=== PATIENT | male | born 1945 | race Caucasian/White ===

== ENCOUNTER 2018-01-12 15:52 | Emergency (ER) | payer MEDICARE, SELFPAY ==
[2018-01-12 15:55] VITALS: BP 127/80; PULSE 104; RESP 17; TEMP 36.6; O2SAT 97; BMI 26.6
[2018-01-12 16:04] VITALS: BP 106/67; BP 121/79; BP 124/77; PULSE 112; PULSE 92; PULSE 93
--- NOTE | 2018-01-12 16:21 | CT_ITS ---
STUDY: CT BRAIN WITHOUT CONTRAST REASON FOR EXAM: Male, 72 years old. Dizziness RADIATION DOSAGE (If Supplied By Facility): CTDIvol = ( 44.99 ) mGy, DLP = ( 762.36 ) mGycm TECHNIQUE: Transaxial CT imaging of the brain was performed without administration of intravenous contrast material. Individualized dose optimization techniques were used for this CT. COMPARISON: None. FINDINGS: The soft tissues are unremarkable. The osseous structures are unremarkable. Normal size ventricles and extra-axial spaces for the patient's age. The white matter tracts are unremarkable. The basal ganglia and thalami are unremarkable. No abnormalities are seen in the brainstem. The cerebellum is unremarkable. There is no intracranial hemorrhage. There are no findings of acute ischemia. There are small retention cysts in the lower right maxillary sinus. CT/Brain/Head without Contrast IMPRESSION: No acute intracranial abnormalities. Electronically Signed: Tamy Jiménez MD at 17:13 EDT Tel Direct: [phone], Service support ,
--- NOTE | 2018-01-12 16:22 | EKG12_ITS ---
Test Reason : Blood Pressure : / mmHG Vent. Rate : 084 BPM Atrial Rate : 084 BPM P-R Int : 224 ms QRS Dur : 088 ms QT Int : 348 ms P-R-T Axes : 028 029 018 degrees QTc Int : 411 ms Sinus rhythm with 1st degree A-V block Otherwise normal ECG Confirmed by YASSINE HANSEN, MICKEY ([id number]), assignment editor KELLY GILLESPIE ([id number]) on 01/14/2018 10:55:08 AM Referred By: SHANTELL Confirmed By:MICKEY METZGER MD
--- NOTE | 2018-01-12 16:34 | ED.DCSUM_ITS ---
- ER Visit Summary Date of Service: 01/12/18 Chief Complaint: Dizziness History of Present Illness: The patient is a 72 M who presents with dizziness that has been waxing and waning today. Patient states his dizziness feels like a spinning sensation. Patient states this is worse with ambulation and improved with rest. Patient denies any headaches. Patient denies any paresthesias. Patient admits to some slight nausea but denies any vomiting. Patient states his ears feel plugged. Patient states she had a fever a couple weeks ago where his temperature is up to 100.6. Patient states he was recently treated for pneumonia and bronchitis with 3 different antibiotics. Patient denies any chest pain or shortness of breath. Physical Examination: Vital signs are stable. Patient is afebrile. Patient is in no acute distress. Oral mucosa is pink and moist. Pupils are equal, round, reactive to light bilaterally. Extraocular muscles are intact. Conjunctiva is clear. There is no nystagmus noted. Tympanic membranes are clear bilaterally. Neck is supple. Trachea is midline. There is no JVD or lymphadenopathy. Heart was regular rate and rhythm. Lungs are clear and equal bilaterally. There is good respiratory effort noted. Abdomen is soft nontender. Cranial nerves II through XII are intact. There are no focal motor or sensory deficits noted. Test Results: EKG showed a normal sinus rhythm with a rate of 84. There are no acute ST or T-wave changes noted. CT scan of the brain was obtained was within normal limits. PA and lateral chest x-ray does not show any acute cardiopulmonary process. CBC showed a mild anemia with a hemoglobin of 12.7 and hematocrit 37.6. Troponin was normal. Basic metabolic profile was essentially within normal limits. Emergency Department Course and Treatment: Orthostatic vital signs were obtained and were within normal limits. Patient was given a dose of meclizine here. Patient felt better on reevaluation. Patient was given a prescription for meclizine. Patient was instructed to follow-up with his primary care physician in 7-10 days. Patient understood and was agreeable with the plan. All questions were answered. Disposition: Discharged home Impression: Vertigo This note was generated with [employer] software. It may contain incorrect words, spelling, and punctuation that were not noted in review of the chart prior to signing ED Disposition - Plan for ED Patient: Disposition: Home or Assisted Living Chief Complaint: Dizziness Diagnosis: Vertigo Instructions: ED Vertigo Unspecified Prescriptions: Meclizine HCl 25 mg PO Q8H PRN PRN #20 tab PRN Reason: Dizziness Referrals: Wil Yan MD [Primary Care Provider] -
--- NOTE | 2018-01-12 16:50 | RAD_ITS ---
STUDY: X-RAY CHEST REASON FOR EXAM: Male, 72 years old. Cough. TECHNIQUE: Frontal and lateral views of the chest. COMPARISON: None. FINDINGS: The lungs are mildly hyperexpanded and there is a diffuse interstitial pattern. There is no demonstrated pleural abnormality. There is borderline cardiac enlargement. Normal mediastinum and mattie. Normal visualized pulmonary arteries. There is atherosclerotic calcification of the aortic arch with tortuosity. There are diffuse degenerative changes of the visualized thoracic spine. Normal visualized ribs, clavicles, and shoulders. There is no demonstrated abnormality of the visualized soft tissue structures of the upper abdomen. RAD/Chest PA and Lateral IMPRESSION: Borderline cardiac enlargement with mild hyperexpansion and diffuse interstitial pattern. No acute pathology. Electronically Signed: Chiki Peña MD at 17:05 EDT , Service support ,
[2018-01-12 16:55] LABS: Absolute Lymphocyte Count 1.26 X10^3/ul (0.83-4.51); Absolute Neutrophil Count 3.1 X10^3/uL (2.0-7.7); Basophil# 0.03 X10^3/uL; Basophil% 0.6 % (0-1); Eosinophil# 0.31 X10^3/uL; Eosinophils% 5.8 % (0-5); Hematocrit 37.6 % (40-54); Hemoglobin 12.7 g/dl (13.0-16.5); Lymphocyte # 1.26 X10^3/ul (4.0); Lymphocyte % 23.7 % (19-41); Mean Corp Hgb Conc 33.8 g/gl (32-36); Mean Corpuscular Hgb 30.8 pg (27.0-32.0); Mean Corpuscular Volume 91.3 fL (80-94); Mean Platelet Vol. 10.2 fl (6.2-12.0); Monocyte# 0.56 X10^3/uL; Monocyte% 10.5 % (0-10); Neutrophil # 3.13 X10^3/uL (2.7-7.7); Platelet Count 216 K/mm3 (150-450); RBC Distribution Width CV 14.5 % (11.6-14.6); RBC Distribution Width SD 47.3 fl (35.1-43.9); Red Blood Count 4.12 M/mm3 (4.6-6.2); White Blood Count 5.3 K/mm3 (4.4-11.0)
[2018-01-12 16:56] LABS: POSITIVE COUNT NO; POSITIVE DIFFERENTIAL NO; POSITIVE MORPHOLOGY NO
[2018-01-12 17:08] LABS: Anion Gap 5 (5-15); BUN 9 mg/dL (7-18); BUN/Creat Ratio 8.4 RATIO (10-20); Calcium,Total 8.8 mg/dL (8.5-10.1); Chloride 107 mmol/L (98-107); Creatinine, Serum 1.07 mg/dL (0.70-1.30); EST Glomerular Filtration Rate 72 mL/min (>60); Est Glom Filt Rate - Afr Amer 87 mL/min (>60); Estimated Creatinine Clearance 54.66 ml/min; Glucose 136 mg/dL (74-106); Potassium 4.3 mmol/L (3.5-5.1); Sodium Level 139 mmol/L (136-145)
[2018-01-12 18:12] VITALS: BP 115/79; PULSE 76; RESP 16; O2SAT 95
[2018-01-12 19:02] VITALS: BP 118/73; PULSE 73; RESP 20; O2SAT 97
--- NOTE | 2018-01-12 19:02 | ED.RN ---
REVIEWED D/C INSTRUCTIONS, FOLLOW UP CARE, PRESCRIPTION, AND S/S THAT WOULD WARRANT A RETURN TO THE ED WITH PT. PT VERBALIZED AN UNDERSTANDING AND DENIES FURTHER QUESTIONS FOR THIS RN. PT SKIN WARM AND DRY, RESP EVEN AND UNLABORED, PT A&O X 3, NO DISTRESS NOTED. PT AMBULATED OUT OF ED, GAIT STEADY.
== END 2018-01-12 19:04 | disposition home or self-care (01) ==
PROVIDERS: Emergency Provider Emergency Medicine; Family Provider Family Medicine; PCP Family Medicine
DX: R42 Dizziness and giddiness (principal); J40 Bronchitis, not specified as acute or chronic; Z79.51 Long term (current) use of inhaled steroids; Z79.82 Long term (current) use of aspirin; Z79.84 Long term (current) use of oral hypoglycemic drugs; Z79.899 Other long term (current) drug therapy
CPT/HCPCS: 70450; 71046; 80048; 84484; 85025; 93005; 99285; A4216

== ENCOUNTER 2019-06-23 21:41 | Emergency (ER) | payer MEDICARE, SELFPAY ==
[2019-06-23 21:41] VITALS: BP 147/86; PULSE 70; RESP 16; TEMP 37.3; O2SAT 96; BMI 26.6
--- NOTE | 2019-06-23 21:52 | US_ITS ---
HISTORY: Epigastric pain. Concern for acute cholecystitis. TECHNIQUE: Miller scale and color doppler imaging was performed of the pancreas, liver, and gallbladder. COMPARISON: None FINDINGS: # of images incl. paperwork: 137 Liver is normal in size and appearance. Gallbladder wall thickening. Biliary ductal dilatation. Gallstone within the neck of the gallbladder with biliary sludge. The gallbladder is distended. There is some linear reverberation artifact extending inferiorly from the anterior wall of the gallbladder on several images. Gallbladder wall measures 4 mm. Common bile duct measures 10 mm. No tenderness upon insonation the gallbladder. Visualized pancreas is normal in appearance. Right kidney is normal in size and appearance. Visualized abdominal aorta has normal caliber. IVC is patent. Hepatopedal flow is present within the central portal vein. US/Gallbladder IMPRESSION: Distended gallbladder with a thickened gallbladder wall, gallstones within the gallbladder neck, and biliary sludge suggest acute cholecystitis. Mild biliary ductal dilatation. This could be indicative of choledocholithiasis which was not identified. On a few images there is some reverberation artifact from the anterior wall of the gallbladder wall. It is feasible that this is a reverberation due to gas within the wall which would give the patient a diagnosis of emphysematous cholecystitis. at 3764 Reported and signed by: Hoang Mittal MD Electronically Signed: Hoang Mittal MD at 23:15 EDT Tel , Service support ,
--- NOTE | 2019-06-23 21:54 | ED.DCSUM_ITS ---
History of Present Illness Chief Complaint: Abd Pain Informant: Patient Onset: Today Context: Gradual Onset Timing: Continuous Current Severity: Moderate Maximum Severity: Moderate Narrative: The patient is a 74-year-old male with no history of prior abdominal surgery presents to the emergency department with midepigastric abdominal pain. The patient symptoms began about 6 hours ago. He states that he had a heavy lunch with fried chicken, mashed potatoes, and bothered bread. He states shortly thereafter, he being a pain in his midepigastric area almost into his right upper quadrant. He states throughout the day, the pain is worsened. He was nauseated and had one episode of vomiting. He has not felt like he had a fever. He denies any chills or sweats. He denies any chest pain shortness of breath. He is never really had pain like this before. Prior similar symptoms: No Recent Illness/Hospitalization: No Past Medical History - Allergies and Home Meds Allergies/Adverse Reactions: Allergies celecoxib [From Celebrex] Allergy (Verified 06/23/19 21:46) Unknown ciprofloxacin [From Cipro] Allergy (Verified 06/23/19 21:46) Unknown codeine Allergy (Verified 06/23/19 21:46) Unknown doxycycline Allergy (Verified 06/23/19 21:46) Unknown indomethacin [From Indocin] Allergy (Verified 06/23/19 21:46) Unknown piroxicam [From Feldene] Allergy (Verified 06/23/19 21:46) Unknown sulfamethoxazole [From Septra] Allergy (Verified 06/23/19 21:46) Unknown trimethoprim [From Septra] Allergy (Verified 06/23/19 21:46) Unknown EMYCIN Allergy (Uncoded 06/23/19 21:46) Unknown Primary Care Physician: Wil Yan MD [Primary Care Provider] - Prior records reviewed: Yes Past Medical History: - - Hypertension, hypercholesterolemia, non-insulin- dependent diabetes Surgical History: no surgical history Smoking Status: Never smoker Review of Systems General: Denies: Chills, Fever, Sweats Eyes: Denies: Visual changes - bilaterally, Diplopia ENT: Denies: Rhinorrhea, Sore throat Cardiovascular: Denies: Chest pain, Palpitations Respiratory: Denies: Dyspnea, Cough, Dyspnea on exertion Gastrointestinal: Reports: Abdominal pain, Nausea. Denies: Vomiting, Diarrhea, Melena, Hematochezia Genitourinary: Denies: Dysuria, Hematuria, Frequency Musculoskeletal: Denies: Back pain, Extremity Pain Skin: Denies: Rash, Wounds Neurological: Denies: Headache, Weakness, Numbness Physical Exam Vital Signs/Narrative: Vital Signs Temp Pulse Resp BP Pulse Ox 06/23/19 21:41 99.2 F H 70 16 147/86 H 96 Inital Vital Signs reviewed: Yes General: Well nourished, Well developed, No Acute Distress Head: Normocephalic, Atraumatic Eyes: Perrl, EOMI ENT: Moist mucous membranes, No rhinorrhea Neck: Supple, Nontender Cardiovascular: Regular rate, Regular rhythm, No murmurs Respiratory: No distress, CTA bilaterally, Chest nontender Abdomen: Soft, Nondistended, Normal bowel sounds, Tender Back: Nontender, Normal Inspection Extremities: Nontender, No edema Skin: Normal color, No rash Neurological: Alert, Oriented x3, Cranial nerves II-XII grossly intact, Normal Strength, Normal Sensation Psychological: Normal affect, Normal Mood Diagnostic/Tx/Re-eval Clinical Impression(s) from Imaging Studies Gallbladder Ultrasound 06/23/19 21:52 IMPRESSION: Distended gallbladder with a thickened gallbladder wall, gallstones within the gallbladder neck, and biliary sludge suggest acute cholecystitis. Mild biliary ductal dilatation. This could be indicative of choledocholithiasis which was not identified. On a few images there is some reverberation artifact from the anterior wall of the gallbladder wall. It is feasible that this is a reverberation due to gas within the wall which would give the patient a diagnosis of emphysematous cholecystitis. at 2316 Reported and signed by: Hoang Mittal MD Electronically Signed: Hoang Mittal MD at 23:15 EDT Tel , Service support , Abnormal Lab Results 06/23/19 06/23/19 06/23/19 22:00 22:00 23:00 WBC 10.4 RBC 4.48 L Hgb 13.6 Hct 41.2 MCV 92.0 MCH 30.4 MCHC 33.0 RDW Std Deviation 49.0 H RDW Coeff of Emani 14.5 Plt Count 200 MPV 10.3 Immature Gran % (Auto) 0.300 Neut % (Auto) 78.6 H Lymph % (Auto) 11.2 L [place] % (Auto) 7.3 Eos % (Auto) 1.9 Baso % (Auto) 0.7 Absolute Neuts (auto) 8.2 H Absolute Lymphs (auto) 1.16 Nucleated RBC % 0 Sodium 137 Potassium 4.4 Chloride 104 Carbon Dioxide 25.0 Anion Gap 8 BUN 19 H Creatinine 1.20 Estim Creat Clear Calc 54.07 Est GFR (MDRD) Af Amer 76 Est GFR (MDRD) Non-Af 63 BUN/Creatinine Ratio 15.8 Glucose 146 H Calcium 9.2 Total Bilirubin 0.40 Direct Bilirubin 0.13 AST 23 ALT 35 Alkaline Phosphatase 69 Total Protein 8.2 Albumin 3.2 Globulin 5.0 H Lipase 200 Urine Color Yellow Urine Clarity Clear Urine pH 6.0 Ur Specific [place] 1.020 Urine Protein Negative Urine Glucose (UA) Normal Urine Ketones Negative Urine Occult Blood Negative Urine Nitrite Negative Urine Bilirubin Negative Urine Urobilinogen Normal Ur Leukocyte Esterase Negative Urine RBC 0 SEEN Urine WBC 0-5 SEEN Ur Squamous Epith Cells 0-5 SEEN Urine Bacteria 0 SEEN Urine Mucus 0 SEEN - Medical Decision Making The patient presents with right upper quadrant pain. I was concerned for cholecystitis. IV was established. Patient was given analgesics and fluids with some improvement of his pain. Screening labs are unremarkable. Ultrasound does show evidence of acute cholecystitis, but there was question of air within the gallbladder wall and he does have a dilated common bile duct. The patient has no markers that are consistent with acute obstructive process. I did discuss this with Dr. Potts. We will obtain a CT of the patient's abdomen pelvis to make sure that there is not gangrenous cholecystitis or emphysematous cholecystitis and to further delineate his biliary tree. This will be reviewed with surgery when completed. Impression 1. Acute cholecystitis ED Disposition - Plan for ED Patient: Referrals: Wil Yan MD [Primary Care Provider] -
[2019-06-23] MEDS: Morphine 4 MG/ML Syringe IV ×2 (22:05→23:27)
[2019-06-23] MEDS: 0.9% Normal Saline 1,000 ML 1000 ML IV (22:05)
[2019-06-23] MEDS: Ondansetron 4 MG/2 ML Vial IV (22:05)
[2019-06-23 22:08] LABS: Absolute Lymphocyte Count 1.16 X10^3/uL (0.83-4.51); Absolute Neutrophil Count 8.2 X10^3/uL (2.0-7.7); Basophil# 0.07 X10^3/uL; Basophil% 0.7 % (0-1); Eosinophils% 1.9 % (0-5); Hematocrit 41.2 % (40-54); Hemoglobin 13.6 g/dL (13.0-16.5); Lymphocyte # 1.16 X10^3/ul (4.0); Lymphocyte % 11.2 % (19-41); Mean Corpuscular Hgb 30.4 pg (27.0-32.0); Mean Platelet Vol. 10.3 fl (6.2-12.0); Monocyte# 0.76 X10^3/uL; Monocyte% 7.3 % (0-10); NRBC Flagged by Analyzer 0 % (0-5); Neutrophil # 8.17 X10^3/uL (2.7-7.7); Neutrophil % 78.6 % (47-70); Platelet Count 200 K/mm3 (150-450); RBC Distribution Width CV 14.5 % (11.6-14.6); Red Blood Count 4.48 M/mm3 (4.6-6.2); White Blood Count 10.4 K/mm3 (4.4-11.0)
[2019-06-23 22:14] VITALS: BP 147/86; PULSE 70; RESP 16; TEMP 37.3; O2SAT 96; BMI 26.6
[2019-06-23 22:33] LABS: AST(SGOT) 23 U/L (15-37); Alanine Aminotransfer ALT/SGPT 35 U/L (16-61); Albumin, Serum 3.2 g/dL (3.2-5.0); Alkaline Phosphatase 69 U/L (45-117); Anion Gap 8 (5-15); BUN 19 mg/dL (7-18); BUN/Creat Ratio 15.8 RATIO (10-20); Bilirubin, Direct 0.13 mg/dL (0.00-0.30); Calcium,Total 9.2 mg/dL (8.5-10.1); Chloride 104 mmol/L (98-107); EST Glomerular Filtration Rate 63 mL/min (>60); Est Glom Filt Rate - Afr Amer 76 mL/min (>60); Estimated Creatinine Clearance 54.07 ml/min; Glucose 146 mg/dL (74-106); Lipase 200 U/L (73-393); Potassium 4.4 mmol/L (3.5-5.1); Protein, Total 8.2 g/dL (6.4-8.2); Sodium Level 137 mmol/L (136-145)
[2019-06-23 23:07] LABS: Bacteria 0 SEEN /hpf (None Seen); Mucous, Urine 0 SEEN /hpf (<or=2+); Red Blood Cells-Urine 0 SEEN /hpf (0-5)
[2019-06-23 23:16] VITALS: BP 148/89; PULSE 79; RESP 18; O2SAT 98
[2019-06-23 23:18] LABS: Color, Urine Yellow (Yellow); Glucose, Dipstick Normal (Normal); Ketone-Dipstick Negative (Negative); Leukocyte Esterase-Dipstick Negative /ul (Negative); Nitrite-Dipstick Negative (Negative); Occult Blood-Urine Negative /ul (Negative); Protein-Dipstick Negative (Negative); Urine Bilirubin Dipstick Negative (Negative); Urine Clarity Clear (Clear); Urine Urobilinogen Normal (Normal)
[2019-06-23 23:24] LABS: Squamous Epithelial Cells - UA 0-5 SEEN /hpf (0-5)
[2019-06-23 23:26] LABS: White Blood Cells 0-5 SEEN /hpf (0-5)
--- NOTE | 2019-06-23 23:33 | CT_ITS ---
HISTORY: EPIGASTRIC PAIN AFTER EATING, FINDINGS ON US EARLIER, HX DIAB TECHNIQUE: Helically acquired images were obtained of the abdomen and pelvis following the intravenous administration of 100ML ml of 100mL Isovue-370 Iodinated contrast. 2D reformats. No oral contrast was administered. A radiation dose optimization technique was used for this scan. COMPARISON: Ultrasound of the right upper quadrant and gallbladder from less than 2 hours earlier FINDINGS: # of images incl. paperwork: 409 LUNG BASES: Minimal dependent atelectasis. Minimal age-related pulmonary fibrosis CT abdomen: Multilevel degenerative disc disease with some facet arthropathy. Hip arthritis is mild. The gallbladder is distended with gallbladder wall thickening and gallstones lodged within the gallbladder neck. Intra-and extrahepatic biliary ductal dilatation. No gas within the gallbladder wall is perceived. Liver, spleen, pancreas, and adrenal glands, are normal. A tiny duodenal diverticulum is present adjacent to the papilla. Hypodense mass exophytic to the superior pole of the right kidney statistically represents a benign cyst. Prominent extrarenal pelves. No hydronephrosis or hydroureter. No ureteric stones. The aorta is slightly tortuous. CT pelvis: No ascites is present. The prostate gland is enlarged indenting into the posterior inferior aspect of the urinary bladder. The appendix is normal. Series 2 image 72. The bladder is mostly decompressed. Some diverticulosis. No distended loops of bowel. No pathologic air-fluid levels. CT/Abdomen/Pelvis W IV Cont ONLY IMPRESSION: Findings consistent with acute cholecystitis. No emphysematous cholecystitis perceived. Individualized dose optimization techniques were used for this CT. at 0034 Reported and signed by: Hoang Mittal MD Electronically Signed: Hoang Mittal MD at 0:32 EDT Tel , Service support ,
[2019-06-24] MEDS: HYDROmorphone 1 MG/ML Syringe IV (01:58)
[2019-06-24 02:24] VITALS: BP 120/80; PULSE 110; RESP 14; TEMP 36.9; O2SAT 95
--- NOTE | 2019-06-24 02:45 | ED.RN ---
RN REPORT GIVEN TO FIDENCIO RAMIREZ AT [id number]. NO QUESTIONS OR CONCERNS FROM HER AT THIS TIME.
== END 2019-06-24 03:00 | disposition short-term general hospital (02) ==
PROVIDERS: Emergency Provider Emergency Medicine; Family Provider Family Medicine; PCP Family Medicine
DX: K81.0 Acute cholecystitis (principal); I10 Essential (primary) hypertension; E78.00 Pure hypercholesterolemia, unspecified; E11.9 Type 2 diabetes mellitus without complications; Z79.84 Long term (current) use of oral hypoglycemic drugs; Z79.899 Other long term (current) drug therapy
CPT/HCPCS: 74177; 76705; 80048; 80076; 81001; 83690; 85025; 96361; 96365; 96366; 96375; 96376; 99284; J7030; Q9967; A4216; J2405

== ENCOUNTER 2019-06-30 15:37 | Emergency (ER) | payer MEDICARE, SELFPAY ==
[2019-06-30 15:42] VITALS: BP 135/79; PULSE 87; RESP 17; TEMP 36.6; O2SAT 96; BMI 26.7
[2019-06-30 16:13] VITALS: BP 135/79; PULSE 87; RESP 17; TEMP 36.6; O2SAT 96
--- NOTE | 2019-06-30 16:20 | EKG12_ITS ---
Test Reason : SOB Blood Pressure : / mmHG Vent. Rate : 080 BPM Atrial Rate : 080 BPM P-R Int : 242 ms QRS Dur : 090 ms QT Int : 378 ms P-R-T Axes : 038 036 027 degrees QTc Int : 435 ms Sinus rhythm with 1st degree A-V block Otherwise normal ECG Confirmed by INGA HANSEN, ALEX ([id number]), proposal editor MIKEL CALDWELL ([id number]) on 07/04/2019 2:21:08 PM Referred By: AMIRAH Confirmed By:ALEX XIONG MD
--- NOTE | 2019-06-30 16:24 | ED.VIS.DYS ---
History of Present Illness Chief Complaint: Shortness of Breath Informant: Patient, Spouse/S.O. 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 Ever since the surgery, he has had a nonproductive cough, intermittent shortness of breath, and low-grade fevers around 99. He does not necessarily feeling worse now. No hemoptysis. No leg pain or swelling. No history of DVT or PE. He was sent home with an incentive spirometer, the patient states he is using it but he is not using it a lot. He states that he tends to do it better after using an albuterol inhaler that he was given long ago, he does not have a history of any lung disease or asthma. No history of heart disease. He was seen by nurse practitioner at [facility] outpatient facility today and sent here to get a d-dimer. states that they had some labs and x-ray done, however we do not have records of any of this nor do we have access. - Past Medical History (1) Hypothyroidism Status: Chronic (2) Hyperlipidemia Status: Chronic (3) GERD (gastroesophageal reflux disease) Status: Chronic (4) Type 2 diabetes mellitus Status: Chronic (5) Prostatic hyperplasia Status: Chronic Past Medical History - Allergies and Home Meds Allergies/Adverse Reactions: Allergies celecoxib [From Celebrex] Allergy (Verified 06/30/19 15:42) Unknown ciprofloxacin [From Cipro] Allergy (Verified 06/30/19 15:42) Unknown codeine Allergy (Verified 06/30/19 15:42) Unknown doxycycline Allergy (Verified 06/30/19 15:42) Unknown indomethacin [From Indocin] Allergy (Verified 06/30/19 15:42) Unknown piroxicam [From Feldene] Allergy (Verified 06/30/19 15:42) Unknown sulfamethoxazole [From Septra] Allergy (Verified 06/30/19 15:42) Unknown trimethoprim [From Septra] Allergy (Verified 06/30/19 15:42) Unknown EMYCIN Allergy (Uncoded 06/30/19 15:42) Unknown Primary Care Physician: Wil Yan MD [Primary Care Provider] - Surgical History: cholecystectomy Lives: With Family Smoking Status: Never smoker Review of Systems General: Reports: Fever, Malaise. Denies: Chills, Sweats Eyes: Denies: Visual changes - bilaterally, Diplopia ENT: Denies: Rhinorrhea, Sore throat Cardiovascular: Denies: Chest pain, Palpitations Respiratory: Reports: Dyspnea, Cough. Denies: Sputum, Orthopnea Gastrointestinal: Reports: Abdominal pain - postoperative, gradually improving, Nausea - w/ eating, - - poor appetite since surgery, poor po intake. Denies: Vomiting, Diarrhea, Melena, Hematochezia Genitourinary: Denies: Dysuria, Hematuria, Frequency Musculoskeletal: Denies: Neck pain, Back pain, Swelling, Extremity Pain Skin: Denies: Rash, Wounds Neurological: Denies: Headache, Weakness, Numbness Physical Exam Vital Signs/Narrative: Vital Signs Temp Pulse Resp BP Pulse Ox 06/30/19 16:13 97.9 F 87 17 135/79 H 96 06/30/19 15:42 97.9 F 87 17 135/79 H 96 Inital Vital Signs reviewed: Yes General: Well nourished, Well developed, No Acute Distress Head: Normocephalic, Atraumatic Eyes: Perrl, EOMI ENT: Moist mucous membranes, No rhinorrhea Neck: Supple, Nontender Cardiovascular: Regular rate, Regular rhythm, No murmurs Respiratory: No distress, Chest nontender, Rhonchi - few bibasilar. Negative for: Wheezing Abdomen: Soft, Nondistended, Normal bowel sounds, Tender - mild around healing laprascopic surgical incisions; CDI, no sign of dehisence, infection, discharge Back: Nontender, Normal Inspection Extremities: Nontender, No edema. Negative for: Calf Tenderness Skin: Normal color, No rash, No Trauma Neurological: Alert, Oriented x3, Cranial nerves II-XII grossly intact, Normal Strength, Normal Sensation, Normal Gait Psychological: Normal affect, Normal Mood Diagnostic/Tx/Re-eval Impressions Chest X-Ray 06/30/19 17:10 IMPRESSION: Moderate vascular congestion. Right lower lobe atelectasis and/or infiltrate. Electronically Signed: Christi Carbajal MD at 17:21 EST Tel , Service support , Chest CTA 06/30/19 17:56 IMPRESSION: No evidence of pulmonary embolism or thoracic aortic dissection. Right lower lobe airspace disease with small effusion. Findings in the gallbladder fossa as above Electronically Signed: Wilfredo Daley DO at 19:12 EST Tel , Service support , 06/30/19 17:10 Chest PA and Lateral [RAD] Stat 06/30/19 17:56 CTA Chest W/WO Contrast [CT] Stat Laboratory Results 06/30/19 06/30/19 06/30/19 17:00 17:00 17:00 WBC 10.5 RBC 3.84 L Hgb 11.5 L Hct 34.8 L MCV 90.6 MCH 29.9 MCHC 33.0 RDW Std Deviation 47.7 H RDW Coeff of Emani 14.3 Plt Count 300 MPV 9.3 Immature Gran % (Auto) 0.600 Neut % (Auto) 75.5 H Lymph % (Auto) 11.5 L [place] % (Auto) 8.0 Eos % (Auto) 4.0 Baso % (Auto) 0.4 Absolute Neuts (auto) 7.9 H Absolute Lymphs (auto) 1.21 Nucleated RBC % 0 D-Dimer Quant (PE/DVT) 3.89 H* Sodium 135 L Potassium 3.7 Chloride 101 Carbon Dioxide 26.0 Anion Gap 8 BUN 13 Creatinine 0.92 Estim Creat Clear Calc 70.53 Est GFR (MDRD) Af Amer 102 Est GFR (MDRD) Non-Af 85 BUN/Creatinine Ratio 14.1 Glucose 117 H Calcium 8.4 L Total Bilirubin 0.50 AST 40 H ALT 49 Alkaline Phosphatase 81 Troponin I < 0.015 B-Natriuretic Peptide Total Protein 6.9 Albumin 2.3 L Globulin 4.6 H Albumin/Globulin Ratio 0.5 L Urine Color Urine Clarity Urine pH Ur Specific [place] Urine Protein Urine Glucose (UA) Urine Ketones Urine Occult Blood Urine Nitrite Urine Bilirubin Urine Urobilinogen Ur Leukocyte Esterase Urine RBC Urine WBC Ur Squamous Epith Cells Urine Bacteria Urine Mucus 06/30/19 06/30/19 17:00 17:20 WBC RBC Hgb Hct MCV MCH MCHC RDW Std Deviation RDW Coeff of Emani Plt Count MPV Immature Gran % (Auto) Neut % (Auto) Lymph % (Auto) [place] % (Auto) Eos % (Auto) Baso % (Auto) Absolute Neuts (auto) Absolute Lymphs (auto) Nucleated RBC % D-Dimer Quant (PE/DVT) Sodium Potassium Chloride Carbon Dioxide Anion Gap BUN Creatinine Estim Creat Clear Calc Est GFR (MDRD) Af Amer Est GFR (MDRD) Non-Af BUN/Creatinine Ratio Glucose Calcium Total Bilirubin AST ALT Alkaline Phosphatase Troponin I B-Natriuretic Peptide 137.6 H Total Protein Albumin Globulin Albumin/Globulin Ratio Urine Color Yellow Urine Clarity Clear Urine pH 7.0 Ur Specific [place] 1.010 Urine Protein Negative Urine Glucose (UA) Normal Urine Ketones 150 H Urine Occult Blood 10 H Urine Nitrite Negative Urine Bilirubin Negative Urine Urobilinogen Normal Ur Leukocyte Esterase Negative Urine RBC 0 SEEN Urine WBC 0 SEEN Ur Squamous Epith Cells 0 SEEN Urine Bacteria 0 SEEN Urine Mucus 0 SEEN - Rhythm Strip Rhythm Strip: Sinus Rhythm Rate: 80 Ectopy: None - EKG Initial EKG Interpretation: Sinus Rhythm, No Acute Injury Pattern, AV Block - 1st deg Prior: Unchanged Treatment - Dyspnea: Antibiotics - Medical Decision Making Chest x-ray showed venous congestion versus atelectasis versus pneumonia. This really did not help much with the differential, although it made pulmonary embolus much more unlikely. His d-dimer, expectedly, was very high since he just had abdominal surgery. Therefore in order to get the most data we obtain CT angiography to rule that out, it showed no PE, and it did help to sort out the x-ray, showing what appears to be right lower lobe airspace disease which is likely pneumonia. Furthermore his BNP came back only very slightly elevated, ruling against acute decompensated congestive heart failure. The rest of his work-up is unremarkable. He was given IV fluids to help keep him hydrated since his oral intake has been relatively poor. He required no breathing treatments, and declined them when I offered. He is breathing well and conversive in full sentences. He prefers not to stay in the hospital and is comfortable going home which I am comfortable with his well. He is not septic. He has follow-up with his surgeon in [place] this coming week. We discussed reasons to return to the hospital, gave him an initial dose of Levaquin, as well as prescription for the rest of the 5-day course. Of note, he describes an allergy to Cipro but it is GI upset only, he has no true allergy. He has nausea medicine at home. They are comfortable with this overall plan. ED Disposition - Plan for ED Patient: Disposition: Home or Assisted Living Diagnosis: Pneumonia, History of recent surgery Instructions: PNEUMONIA (Adult) Prescriptions: levoFLOXacin tablet [Levaquin tablet] 750 mg PO QHS #4 tab Prescription Printed Referrals: Wil Yan MD [Primary Care Provider] - (next week)
[2019-06-30] MEDS: 0.9% Normal Saline 1,000 ML 999 ML IV (16:34)
[2019-06-30 17:00] VITALS: BP 135/79; PULSE 87; RESP 16; TEMP 36.6; O2SAT 96
--- NOTE | 2019-06-30 17:10 | RAD_ITS ---
STUDY: X-RAY CHEST REASON FOR EXAM: Male, 74 years old. Shortness of breath TECHNIQUE: PA and lateral views of the chest. COMPARISON: 01/12/2018 chest x-ray FINDINGS: The vascular markings are slightly more prominent than prior study. There is still elevation of the right hemidiaphragm. There is lesser elevation of the left hemidiaphragm when compared to prior study. Normal size heart. Normal mediastinum and mattie. Normal visualized pulmonary arteries. Normal visualized aortic arch and descending thoracic aorta. Normal visualized thoracic spine. Normal visualized ribs, clavicles, and shoulders. There is no demonstrated abnormality of the visualized soft tissue structures of the upper abdomen. RAD/Chest PA and Lateral IMPRESSION: Moderate vascular congestion. Right lower lobe atelectasis and/or infiltrate. Electronically Signed: Christi Carbajal MD at 17:21 EST Tel , Service support ,
[2019-06-30 17:12] LABS: Absolute Lymphocyte Count 1.21 X10^3/uL (0.83-4.51); Absolute Neutrophil Count 7.9 X10^3/uL (2.0-7.7); Basophil# 0.04 X10^3/uL; Basophil% 0.4 % (0-1); Eosinophil# 0.42 X10^3/uL; Hematocrit 34.8 % (40-54); Hemoglobin 11.5 g/dL (13.0-16.5); Lymphocyte # 1.21 X10^3/ul (4.0); Lymphocyte % 11.5 % (19-41); Mean Corpuscular Hgb 29.9 pg (27.0-32.0); Mean Corpuscular Volume 90.6 fL (80-94); Mean Platelet Vol. 9.3 fl (6.2-12.0); Monocyte# 0.84 X10^3/uL; NRBC Flagged by Analyzer 0 % (0-5); Neutrophil # 7.94 X10^3/uL (2.7-7.7); Neutrophil % 75.5 % (47-70); Platelet Count 300 K/mm3 (150-450); RBC Distribution Width CV 14.3 % (11.6-14.6); RBC Distribution Width SD 47.7 fl (35.1-43.9); Red Blood Count 3.84 M/mm3 (4.6-6.2); White Blood Count 10.5 K/mm3 (4.4-11.0)
[2019-06-30 17:27] LABS: ALB/GLOB Ratio 0.5 RATIO (0.9-2.4); AST(SGOT) 40 U/L (15-37); Alanine Aminotransfer ALT/SGPT 49 U/L (16-61); Albumin, Serum 2.3 g/dL (3.2-5.0); Alkaline Phosphatase 81 U/L (45-117); Anion Gap 8 (5-15); BUN 13 mg/dL (7-18); BUN/Creat Ratio 14.1 RATIO (10-20); Calcium,Total 8.4 mg/dL (8.5-10.1); Chloride 101 mmol/L (98-107); Creatinine, Serum 0.92 mg/dL (0.70-1.30); EST Glomerular Filtration Rate 85 mL/min (>60); Est Glom Filt Rate - Afr Amer 102 mL/min (>60); Estimated Creatinine Clearance 70.53 ml/min; Globulin 4.6 g/dL (2.2-4.2); Glucose 117 mg/dL (74-106); Potassium 3.7 mmol/L (3.5-5.1); Protein, Total 6.9 g/dL (6.4-8.2); Sodium Level 135 mmol/L (136-145)
[2019-06-30 17:30] LABS: Bacteria 0 SEEN /hpf (None Seen); Mucous, Urine 0 SEEN /hpf (<or=2+); Red Blood Cells-Urine 0 SEEN /hpf (0-5); Squamous Epithelial Cells - UA 0 SEEN /hpf (0-5); White Blood Cells 0 SEEN /hpf (0-5)
[2019-06-30] MEDS: Ondansetron 4 MG/2 ML Vial IV (17:40)
[2019-06-30 17:41] VITALS: BP 137/83; PULSE 83; RESP 16; O2SAT 95
[2019-06-30 17:48] LABS: D-Dimer Quantitative (DVT/PE) 3.89 FEU/ug/m (0.27-0.49)
[2019-06-30 17:51] LABS: Color, Urine Yellow (Yellow); Glucose, Dipstick Normal (Normal); Leukocyte Esterase-Dipstick Negative /ul (Negative); Nitrite-Dipstick Negative (Negative); Occult Blood-Urine 10 /ul (Negative); Protein-Dipstick Negative (Negative); Urine Bilirubin Dipstick Negative (Negative); Urine Clarity Clear (Clear); Urine Urobilinogen Normal (Normal)
[2019-06-30 17:52] LABS: Ketone-Dipstick 150 mg/dl (Negative)
--- NOTE | 2019-06-30 17:56 | CT_ITS ---
STUDY: CTA CHEST REASON FOR EXAM: Male, 74 years old. Shortness of breath with elevated d-dimer. Recent surgery RADIATION DOSAGE (If Supplied By Facility): CTDIvol = ( 13.20 ) mGy, DLP = ( 443.18 ) mGycm TECHNIQUE: The examination was performed with the intravenous administration of IV Isovue 370 100ml. Post-processing of the angiographic images was performed, with multiplanar reformation and 3D reconstruction. Individualized dose optimization techniques were used for this CT. COMPARISON: None. FINDINGS: Normal enhancement of the main pulmonary artery and right and left pulmonary arteries. Normal enhancement of the bilateral peripheral pulmonary arteries. There is no demonstrated pulmonary embolism. Normal thoracic aorta and visualized great vessels. There is no demonstrated aortic dissection. Normal heart and pericardium. Normal mediastinum. Normal hilar regions. Normal visualized trachea and bronchi. Lungs are mildly hypoinflated. Right lower lobe airspace disease and small effusion is noted. Otherwise, the lungs are clear. Normal chest wall structures. There are degenerative changes of thoracic spine. Recent cholecystectomy. Air and fluid noted in the region of gallbladder fossa. Unsure if this is expected postoperative change versus developing infection. CT/CTA Chest W/WO Contrast IMPRESSION: No evidence of pulmonary embolism or thoracic aortic dissection. Right lower lobe airspace disease with small effusion. Findings in the gallbladder fossa as above Electronically Signed: Wilfredo Daley DO at 19:12 EST Tel , Service support ,
[2019-06-30 18:00] VITALS: BP 137/83; PULSE 83; RESP 16; TEMP 36.7; O2SAT 95
[2019-06-30 18:02] LABS: BNP,B-Type NATRIURETIC PEPTIDE 137.6 pg/mL (0-100)
[2019-06-30] MEDS: 0.9% Normal Saline 1,000 ML 150 ML IV (18:31)
[2019-06-30] MEDS: levoFLOXacin 750 MG Tablet PO (19:38)
[2019-06-30 19:41] VITALS: BP 136/83; PULSE 81; RESP 16; O2SAT 96
== END 2019-06-30 19:41 | disposition home or self-care (01) ==
PROVIDERS: Emergency Provider Emergency Medicine; Family Provider Family Medicine; PCP Family Medicine
DX: J18.9 Pneumonia, unspecified organism (principal); Z98.890 Other specified postprocedural states; R06.02 Shortness of breath; R50.9 Fever, unspecified; R33.9 Retention of urine, unspecified; Z90.49 Acquired absence of other specified parts of digestive tract; E03.9 Hypothyroidism, unspecified; E78.5 Hyperlipidemia, unspecified; K21.9 Gastro-esophageal reflux disease without esophagitis; E11.9 Type 2 diabetes mellitus without complications; N40.0 Benign prostatic hyperplasia without lower urinary tract symptoms; Z79.82 Long term (current) use of aspirin; Z79.84 Long term (current) use of oral hypoglycemic drugs; Z79.899 Other long term (current) drug therapy
CPT/HCPCS: 71046; 71275; 80053; 81001; 83880; 84484; 85025; 85379; 93005; 96361; 96374; 99284; J7030; Q9967; A4216; J2405

== ENCOUNTER → 2019-06-30 | Outpatient (CLI) | payer MEDICARE, SELFPAY ==
[2019-06-23 22:14] VITALS: BMI 26.6
[2019-06-30 13:14] LABS: Absolute Lymphocyte Count 0.94 X10^3/uL (0.83-4.51); Absolute Neutrophil Count 8.5 X10^3/uL (2.0-7.7); Basophil# 0.05 X10^3/uL; Basophil% 0.5 % (0-1); Eosinophils% 2.8 % (0-5); Hematocrit 35.9 % (40-54); Hemoglobin 11.9 g/dL (13.0-16.5); Lymphocyte # 0.94 X10^3/ul (4.0); Lymphocyte % 8.9 % (19-41); Mean Corp Hgb Conc 33.1 g/dL (32-36); Mean Corpuscular Volume 90.4 fL (80-94); Mean Platelet Vol. 9.4 fl (6.2-12.0); Monocyte# 0.72 X10^3/uL; Monocyte% 6.8 % (0-10); NRBC Flagged by Analyzer 0 % (0-5); Neutrophil % 80.4 % (47-70); Platelet Count 313 K/mm3 (150-450); RBC Distribution Width CV 14.2 % (11.6-14.6); RBC Distribution Width SD 47.7 fl (35.1-43.9); Red Blood Count 3.97 M/mm3 (4.6-6.2); White Blood Count 10.6 K/mm3 (4.4-11.0)
[2019-06-30 13:15] LABS: ALB/GLOB Ratio 0.5 RATIO (0.9-2.4); AST(SGOT) 37 U/L (15-37); Alanine Aminotransfer ALT/SGPT 49 U/L (16-61); Albumin, Serum 2.4 g/dL (3.2-5.0); Alkaline Phosphatase 83 U/L (45-117); Anion Gap 8 (5-15); BUN 14 mg/dL (7-18); BUN/Creat Ratio 15.2 RATIO (10-20); Calcium,Total 8.8 mg/dL (8.5-10.1); Chloride 99 mmol/L (98-107); Creatinine, Serum 0.92 mg/dL (0.70-1.30); EST Glomerular Filtration Rate 85 mL/min (>60); Est Glom Filt Rate - Afr Amer 103 mL/min (>60); Globulin 4.7 g/dL (2.2-4.2); Glucose 129 mg/dL (74-106); Potassium 4.1 mmol/L (3.5-5.1); Protein, Total 7.1 g/dL (6.4-8.2); Sodium Level 134 mmol/L (136-145)
[2019-06-30 14:11] LABS: D-Dimer Quantitative (DVT/PE) 3.83 FEU/ug/m (0.27-0.49)
== END | disposition home or self-care (01) ==
PROVIDERS: Family Provider Family Medicine; PCP Family Medicine; Referring Provider Physician Assistant; Visit Provider Physician Assistant
DX: R06.02 Shortness of breath (principal); R50.9 Fever, unspecified; R33.9 Retention of urine, unspecified; Z90.49 Acquired absence of other specified parts of digestive tract
CPT/HCPCS: 80053; 85025; 85379

== ENCOUNTER → 2020-01-10 14:43 | Outpatient (CLI) | payer MEDICARE, SELFPAY ==
[2020-01-10 18:07] LABS: Absolute Lymphocyte Count 1.61 X10^3/uL (0.83-4.51); Absolute Neutrophil Count 4.6 X10^3/uL (2.0-7.7); Basophil# 0.05 X10^3/uL; Basophil% 0.7 % (0-1); Eosinophil# 0.27 X10^3/uL; Eosinophils% 3.8 % (0-5); Hematocrit 40.2 % (40-54); Hemoglobin 13.1 g/dL (13.0-16.5); Lymphocyte # 1.61 X10^3/ul (4.0); Lymphocyte % 22.4 % (19-41); Mean Corp Hgb Conc 32.6 g/dL (32-36); Mean Corpuscular Hgb 30.2 pg (27.0-32.0); Mean Corpuscular Volume 92.6 fL (80-94); Mean Platelet Vol. 10.6 fl (6.2-12.0); Monocyte# 0.69 X10^3/uL; Monocyte% 9.6 % (0-10); NRBC Flagged by Analyzer 0 % (0-5); Neutrophil # 4.57 X10^3/uL (2.7-7.7); Neutrophil % 63.4 % (47-70); Platelet Count 258 K/mm3 (150-450); RBC Distribution Width CV 15.9 % (11.6-14.6); RBC Distribution Width SD 53.7 fl (35.1-43.9); Red Blood Count 4.34 M/mm3 (4.6-6.2); White Blood Count 7.2 K/mm3 (4.4-11.0)
[2020-01-10 18:38] LABS: Erythrocyte Sedimentation Rate 77 mm/hr (0-20)
[2020-01-10 18:44] LABS: ALB/GLOB Ratio 0.7 RATIO (0.9-2.4); AST(SGOT) 19 U/L (15-37); Alanine Aminotransfer ALT/SGPT 35 U/L (16-61); Albumin, Serum 3.4 g/dL (3.2-5.0); Alkaline Phosphatase 66 U/L (45-117); Anion Gap 8 (5-15); BUN 14 mg/dL (7-18); BUN/Creat Ratio 12.1 RATIO (10-20); CRP < 2.90 mg/L (0.0-3.0); Calcium,Total 9.6 mg/dL (8.5-10.1); Chloride 103 mmol/L (98-107); Creatinine, Serum 1.16 mg/dL (0.70-1.30); EST Glomerular Filtration Rate 65 mL/min (>60); Est Glom Filt Rate - Afr Amer 79 mL/min (>60); Globulin 4.8 g/dL (2.2-4.2); Glucose 130 mg/dL (74-106); Potassium 4.1 mmol/L (3.5-5.1); Protein, Total 8.2 g/dL (6.4-8.2); Sodium Level 138 mmol/L (136-145)
[2020-01-11 09:09] LABS: Hepatitis B Surface Antibody Non-Reactive; Hepatitis B Surface Antigen Non-Reactive (Nonreactive); Hepatitis C Antibody Non-Reactive (Nonreactive)
[2020-01-12 18:54] LABS: ANTINUCLEAR ANTIBODIES DIRECT Negative (Negative)
[2020-01-14 01:12] LABS: CCP IgG Antibodies 10 units (0-19); Hepatitis B Core AB IgM Negative (Negative)
== END ==
PROVIDERS: PCP Family Medicine; Referring Provider Internal Medicine Rheumatology; Visit Provider Internal Medicine Rheumatology
DX: M19.041 Primary osteoarthritis, right hand (principal); M79.7 Fibromyalgia; M47.897 Other spondylosis, lumbosacral region; K21.9 Gastro-esophageal reflux disease without esophagitis; K44.9 Diaphragmatic hernia without obstruction or gangrene
CPT/HCPCS: 36415; 80053; 85025; 85652; 86038; 86140; 86200; 86431; 86705; 86706; 86803; 87340

== ENCOUNTER → 2020-03-13 12:12 | Outpatient (CLI) | payer MEDICARE, SELFPAY ==
[2020-03-13 15:02] LABS: Absolute Lymphocyte Count 2.17 X10^3/uL (0.83-4.51); Absolute Neutrophil Count 6.4 X10^3/uL (2.0-7.7); Basophil# 0.04 X10^3/uL; Basophil% 0.4 % (0-1); Eosinophil# 0.16 X10^3/uL; Eosinophils% 1.7 % (0-5); Hematocrit 41.4 % (40-54); Hemoglobin 13.4 g/dL (13.0-16.5); Lymphocyte # 2.17 X10^3/ul (4.0); Lymphocyte % 22.8 % (19-41); Mean Corp Hgb Conc 32.4 g/dL (32-36); Mean Corpuscular Hgb 31.4 pg (27.0-32.0); Mean Platelet Vol. 10.1 fl (6.2-12.0); Monocyte# 0.73 X10^3/uL; Monocyte% 7.7 % (0-10); NRBC Flagged by Analyzer 0 % (0-5); Neutrophil # 6.35 X10^3/uL (2.7-7.7); Neutrophil % 66.6 % (47-70); Platelet Count 228 K/mm3 (150-450); RBC Distribution Width CV 15.7 % (11.6-14.6); RBC Distribution Width SD 55.8 fl (35.1-43.9); Red Blood Count 4.27 M/mm3 (4.6-6.2); White Blood Count 9.5 K/mm3 (4.4-11.0)
[2020-03-13 15:21] LABS: ALB/GLOB Ratio 0.6 RATIO (0.9-2.4); AST(SGOT) 16 U/L (15-37); Alanine Aminotransfer ALT/SGPT 31 U/L (16-61); Albumin, Serum 2.9 g/dL (3.2-5.0); Alkaline Phosphatase 71 U/L (45-117); Anion Gap 5 (5-15); BUN 14 mg/dL (7-18); BUN/Creat Ratio 12.3 RATIO (10-20); Calcium,Total 9.1 mg/dL (8.5-10.1); Chloride 104 mmol/L (98-107); Creatinine, Serum 1.14 mg/dL (0.70-1.30); EST Glomerular Filtration Rate 66 mL/min (>60); Est Glom Filt Rate - Afr Amer 80 mL/min (>60); Globulin 4.7 g/dL (2.2-4.2); Glucose 120 mg/dL (74-106); Potassium 3.5 mmol/L (3.5-5.1); Protein, Total 7.6 g/dL (6.4-8.2); Sodium Level 137 mmol/L (136-145)
== END ==
PROVIDERS: PCP Family Medicine; Referring Provider Internal Medicine Rheumatology; Visit Provider Internal Medicine Rheumatology
DX: M05.79 Rheumatoid arthritis with rheumatoid factor of multiple sites without organ or systems involvement (principal); M19.041 Primary osteoarthritis, right hand; M79.7 Fibromyalgia; M47.897 Other spondylosis, lumbosacral region; K21.9 Gastro-esophageal reflux disease without esophagitis; K44.9 Diaphragmatic hernia without obstruction or gangrene; E11.9 Type 2 diabetes mellitus without complications; E03.9 Hypothyroidism, unspecified; E78.5 Hyperlipidemia, unspecified; N40.1 Benign prostatic hyperplasia with lower urinary tract symptoms; G20 Parkinson's disease; Z79.899 Other long term (current) drug therapy
CPT/HCPCS: 36415; 80053; 85025

== ENCOUNTER → 2020-04-17 13:38 | Outpatient (CLI) | payer MEDICARE, SELFPAY ==
[2020-04-17 15:52] LABS: Absolute Neutrophil Count 7.3 X10^3/uL (2.0-7.7); Basophil# 0.04 X10^3/uL; Basophil% 0.4 % (0-1); Eosinophil# 0.15 X10^3/uL; Eosinophils% 1.6 % (0-5); Hematocrit 39.4 % (40-54); Hemoglobin 13.1 g/dL (13.0-16.5); Lymphocyte % 14.7 % (19-41); Mean Corp Hgb Conc 33.2 g/dL (32-36); Mean Corpuscular Volume 96.3 fL (80-94); Mean Platelet Vol. 10.4 fl (6.2-12.0); Monocyte# 0.57 X10^3/uL; NRBC Flagged by Analyzer 0 % (0-5); Neutrophil # 7.28 X10^3/uL (2.7-7.7); Neutrophil % 76.7 % (47-70); Platelet Count 228 K/mm3 (150-450); RBC Distribution Width CV 15.3 % (11.6-14.6); RBC Distribution Width SD 53.9 fl (35.1-43.9); Red Blood Count 4.09 M/mm3 (4.6-6.2); White Blood Count 9.5 K/mm3 (4.4-11.0)
[2020-04-17 16:10] LABS: ALB/GLOB Ratio 0.7 RATIO (0.9-2.4); AST(SGOT) 13 U/L (15-37); Alanine Aminotransfer ALT/SGPT 30 U/L (16-61); Alkaline Phosphatase 59 U/L (45-117); Anion Gap 4 (5-15); BUN 13 mg/dL (7-18); BUN/Creat Ratio 10.8 RATIO (10-20); Calcium,Total 9.1 mg/dL (8.5-10.1); Chloride 103 mmol/L (98-107); EST Glomerular Filtration Rate 62 mL/min (>60); Est Glom Filt Rate - Afr Amer 76 mL/min (>60); Globulin 4.5 g/dL (2.2-4.2); Glucose 191 mg/dL (74-106); Potassium 4.1 mmol/L (3.5-5.1); Protein, Total 7.5 g/dL (6.4-8.2); Sodium Level 137 mmol/L (136-145)
== END ==
PROVIDERS: PCP Family Medicine; Referring Provider Internal Medicine Rheumatology; Visit Provider Internal Medicine Rheumatology
DX: M05.79 Rheumatoid arthritis with rheumatoid factor of multiple sites without organ or systems involvement (principal); M19.041 Primary osteoarthritis, right hand; M79.7 Fibromyalgia; M47.897 Other spondylosis, lumbosacral region; Z79.899 Other long term (current) drug therapy
CPT/HCPCS: 36415; 80053; 85025

== ENCOUNTER → 2020-06-20 11:25 | Outpatient (CLI) | payer MEDICARE, SELFPAY ==
[2020-06-20 15:15] LABS: Absolute Lymphocyte Count 2.14 X10^3/uL (0.83-4.51); Absolute Neutrophil Count 5.2 X10^3/uL (2.0-7.7); Basophil# 0.05 X10^3/uL; Basophil% 0.6 % (0-1); Eosinophil# 0.23 X10^3/uL; Eosinophils% 2.8 % (0-5); Hematocrit 38.8 % (40-54); Hemoglobin 12.3 g/dL (13.0-16.5); Lymphocyte # 2.14 X10^3/ul (4.0); Lymphocyte % 25.7 % (19-41); Mean Corp Hgb Conc 31.7 g/dL (32-36); Mean Corpuscular Hgb 31.6 pg (27.0-32.0); Mean Corpuscular Volume 99.7 fL (80-94); Mean Platelet Vol. 10.6 fl (6.2-12.0); Monocyte# 0.64 X10^3/uL; Monocyte% 7.7 % (0-10); NRBC Flagged by Analyzer 0 % (0-5); Neutrophil # 5.22 X10^3/uL (2.7-7.7); Neutrophil % 62.7 % (47-70); Platelet Count 256 K/mm3 (150-450); RBC Distribution Width CV 15.3 % (11.6-14.6); RBC Distribution Width SD 55.5 fl (35.1-43.9); Red Blood Count 3.89 M/mm3 (4.6-6.2); White Blood Count 8.3 K/mm3 (4.4-11.0)
[2020-06-20 15:37] LABS: ALB/GLOB Ratio 0.7 RATIO (0.9-2.4); AST(SGOT) 15 U/L (15-37); Alanine Aminotransfer ALT/SGPT 26 U/L (16-61); Alkaline Phosphatase 56 U/L (45-117); Anion Gap 7 (5-15); BUN 14 mg/dL (7-18); BUN/Creat Ratio 11.7 RATIO (10-20); Calcium,Total 9.4 mg/dL (8.5-10.1); Chloride 104 mmol/L (98-107); EST Glomerular Filtration Rate 62 mL/min (>60); Est Glom Filt Rate - Afr Amer 75 mL/min (>60); Globulin 4.3 g/dL (2.2-4.2); Glucose 179 mg/dL (74-106); Potassium 3.5 mmol/L (3.5-5.1); Protein, Total 7.3 g/dL (6.4-8.2); Sodium Level 139 mmol/L (136-145)
== END ==
PROVIDERS: PCP Family Medicine; Referring Provider Internal Medicine Rheumatology; Visit Provider Internal Medicine Rheumatology
DX: M05.79 Rheumatoid arthritis with rheumatoid factor of multiple sites without organ or systems involvement (principal); M19.041 Primary osteoarthritis, right hand; M79.7 Fibromyalgia; M47.897 Other spondylosis, lumbosacral region; K21.9 Gastro-esophageal reflux disease without esophagitis; K44.9 Diaphragmatic hernia without obstruction or gangrene; E11.9 Type 2 diabetes mellitus without complications; E03.9 Hypothyroidism, unspecified; E78.5 Hyperlipidemia, unspecified; N40.1 Benign prostatic hyperplasia with lower urinary tract symptoms; G20 Parkinson's disease
CPT/HCPCS: 36415; 80053; 85025

== ENCOUNTER → 2020-08-14 15:59 | Outpatient (CLI) | payer MEDICARE, SELFPAY ==
[2020-08-14 17:48] LABS: Absolute Lymphocyte Count 2.41 X10^3/uL (0.83-4.51); Absolute Neutrophil Count 3.6 X10^3/uL (2.0-7.7); Basophil# 0.06 X10^3/uL; Basophil% 0.8 % (0-1); Eosinophil# 0.29 X10^3/uL; Hematocrit 40.1 % (40-54); Hemoglobin 13.1 g/dL (13.0-16.5); Lymphocyte # 2.41 X10^3/ul (4.0); Lymphocyte % 33.6 % (19-41); Mean Corp Hgb Conc 32.7 g/dL (32-36); Mean Corpuscular Hgb 31.6 pg (27.0-32.0); Mean Corpuscular Volume 96.6 fL (80-94); Monocyte# 0.77 X10^3/uL; Monocyte% 10.7 % (0-10); NRBC Flagged by Analyzer 0 % (0-5); Neutrophil % 50.3 % (47-70); Platelet Count 305 K/mm3 (150-450); RBC Distribution Width CV 14.7 % (11.6-14.6); RBC Distribution Width SD 52.2 fl (35.1-43.9); Red Blood Count 4.15 M/mm3 (4.6-6.2); White Blood Count 7.2 K/mm3 (4.4-11.0)
[2020-08-14 18:10] LABS: ALB/GLOB Ratio 0.7 RATIO (0.9-2.4); AST(SGOT) 17 U/L (15-37); Alanine Aminotransfer ALT/SGPT 27 U/L (16-61); Albumin, Serum 3.1 g/dL (3.2-5.0); Alkaline Phosphatase 68 U/L (45-117); Anion Gap 5 (5-15); BUN 14 mg/dL (7-18); BUN/Creat Ratio 11.7 RATIO (10-20); Calcium,Total 9.1 mg/dL (8.5-10.1); Chloride 107 mmol/L (98-107); EST Glomerular Filtration Rate 62 mL/min (>60); Est Glom Filt Rate - Afr Amer 75 mL/min (>60); Globulin 4.6 g/dL (2.2-4.2); Glucose 116 mg/dL (74-106); Potassium 3.9 mmol/L (3.5-5.1); Protein, Total 7.7 g/dL (6.4-8.2); Sodium Level 141 mmol/L (136-145)
== END ==
PROVIDERS: PCP Family Medicine; Referring Provider Internal Medicine Rheumatology; Visit Provider Internal Medicine Rheumatology
DX: M05.70 Rheumatoid arthritis with rheumatoid factor of unspecified site without organ or systems involvement (principal); M19.041 Primary osteoarthritis, right hand; M79.7 Fibromyalgia; M47.897 Other spondylosis, lumbosacral region; K21.9 Gastro-esophageal reflux disease without esophagitis; K44.9 Diaphragmatic hernia without obstruction or gangrene; E11.9 Type 2 diabetes mellitus without complications; E03.9 Hypothyroidism, unspecified; E78.5 Hyperlipidemia, unspecified; N40.1 Benign prostatic hyperplasia with lower urinary tract symptoms; G20 Parkinson's disease; Z79.899 Other long term (current) drug therapy
CPT/HCPCS: 36415; 80053; 85025

== ENCOUNTER → 2020-11-08 14:20 | Outpatient (CLI) | payer MEDICARE, SELFPAY ==
[2020-11-08 17:35] LABS: Absolute Lymphocyte Count 0.91 X10^3/uL (0.83-4.51); Absolute Neutrophil Count 3.9 X10^3/uL (2.0-7.7); Basophil# 0.03 X10^3/uL; Basophil% 0.5 % (0-1); Eosinophil# 0.14 X10^3/uL; Eosinophils% 2.5 % (0-5); Hematocrit 40.6 % (40-54); Hemoglobin 12.9 g/dL (13.0-16.5); Lymphocyte # 0.91 X10^3/ul (4.0); Lymphocyte % 16.5 % (19-41); Mean Corp Hgb Conc 31.8 g/dL (32-36); Mean Corpuscular Hgb 31.3 pg (27.0-32.0); Mean Corpuscular Volume 98.5 fL (80-94); Mean Platelet Vol. 10.3 fl (6.2-12.0); Monocyte# 0.48 X10^3/uL; Monocyte% 8.7 % (0-10); NRBC Flagged by Analyzer 0 % (0-5); Neutrophil # 3.93 X10^3/uL (2.7-7.7); Neutrophil % 71.6 % (47-70); Platelet Count 221 K/mm3 (150-450); RBC Distribution Width CV 15.9 % (11.6-14.6); RBC Distribution Width SD 57.1 fl (35.1-43.9); Red Blood Count 4.12 M/mm3 (4.6-6.2); White Blood Count 5.5 K/mm3 (4.4-11.0)
[2020-11-08 17:48] LABS: ALB/GLOB Ratio 0.7 RATIO (0.9-2.4); AST(SGOT) 26 U/L (15-37); Alanine Aminotransfer ALT/SGPT 38 U/L (16-61); Albumin, Serum 3.3 g/dL (3.2-5.0); Alkaline Phosphatase 66 U/L (45-117); Anion Gap 7 (5-15); BUN 14 mg/dL (7-18); BUN/Creat Ratio 12.2 RATIO (10-20); Calcium,Total 9.7 mg/dL (8.5-10.1); Chloride 103 mmol/L (98-107); Creatinine, Serum 1.15 mg/dL (0.70-1.30); EST Glomerular Filtration Rate 65 mL/min (>60); Est Glom Filt Rate - Afr Amer 79 mL/min (>60); Globulin 4.5 g/dL (2.2-4.2); Glucose 151 mg/dL (74-106); Potassium 4.1 mmol/L (3.5-5.1); Protein, Total 7.8 g/dL (6.4-8.2); Sodium Level 140 mmol/L (136-145)
== END ==
PROVIDERS: PCP Family Medicine; Referring Provider Internal Medicine Rheumatology; Visit Provider Internal Medicine Rheumatology
DX: M05.70 Rheumatoid arthritis with rheumatoid factor of unspecified site without organ or systems involvement (principal); M19.041 Primary osteoarthritis, right hand; M79.7 Fibromyalgia; M47.897 Other spondylosis, lumbosacral region; K21.9 Gastro-esophageal reflux disease without esophagitis; K44.9 Diaphragmatic hernia without obstruction or gangrene; E11.9 Type 2 diabetes mellitus without complications; E03.9 Hypothyroidism, unspecified; E78.5 Hyperlipidemia, unspecified; N40.1 Benign prostatic hyperplasia with lower urinary tract symptoms; G20 Parkinson's disease; Z79.899 Other long term (current) drug therapy
CPT/HCPCS: 36415; 80053; 85025

== ENCOUNTER → 2021-01-07 12:28 | Outpatient (CLI) | payer MEDICARE, SELFPAY ==
[2021-01-07 15:29] LABS: Absolute Lymphocyte Count 1.52 X10^3/uL (0.83-4.51); Absolute Neutrophil Count 4.5 X10^3/uL (2.0-7.7); Basophil# 0.05 X10^3/uL; Basophil% 0.7 % (0-1); Eosinophil# 0.19 X10^3/uL; Eosinophils% 2.8 % (0-5); Hematocrit 40.3 % (40-54); Lymphocyte # 1.52 X10^3/ul (0.83-4.51); Lymphocyte % 22.1 % (19-41); Mean Corp Hgb Conc 32.3 g/dL (32-36); Mean Corpuscular Hgb 31.7 pg (27.0-32.0); Mean Corpuscular Volume 98.3 fL (80-94); Mean Platelet Vol. 10.8 fl (6.2-12.0); Monocyte% 8.7 % (0-10); NRBC Flagged by Analyzer 0 % (0-5); Neutrophil # 4.49 X10^3/uL (2.7-7.7); Neutrophil % 65.3 % (47-70); Platelet Count 224 K/mm3 (150-450); RBC Distribution Width CV 15.8 % (11.6-14.6); RBC Distribution Width SD 55.9 fl (35.1-43.9); White Blood Count 6.9 K/mm3 (4.4-11.0)
[2021-01-07 15:48] LABS: ALB/GLOB Ratio 0.7 RATIO (0.9-2.4); AST(SGOT) 31 U/L (15-37); Alanine Aminotransfer ALT/SGPT 44 U/L (16-61); Albumin, Serum 3.2 g/dL (3.2-5.0); Alkaline Phosphatase 67 U/L (45-117); Anion Gap 4 (5-15); BUN 13 mg/dL (7-18); BUN/Creat Ratio 11.7 RATIO (10-20); Calcium,Total 9.4 mg/dL (8.5-10.1); Chloride 104 mmol/L (98-107); Creatinine, Serum 1.11 mg/dL (0.70-1.30); EST Glomerular Filtration Rate 68 mL/min (>60); Est Glom Filt Rate - Afr Amer 82 mL/min (>60); Globulin 4.5 g/dL (2.2-4.2); Glucose 87 mg/dL (74-106); Potassium 3.8 mmol/L (3.5-5.1); Protein, Total 7.7 g/dL (6.4-8.2); Sodium Level 138 mmol/L (136-145)
== END ==
PROVIDERS: PCP Family Medicine; Referring Provider Internal Medicine Rheumatology; Visit Provider Internal Medicine Rheumatology
DX: M05.732 Rheumatoid arthritis with rheumatoid factor of left wrist without organ or systems involvement (principal); M19.041 Primary osteoarthritis, right hand; M79.7 Fibromyalgia; M47.897 Other spondylosis, lumbosacral region; K21.9 Gastro-esophageal reflux disease without esophagitis; K44.9 Diaphragmatic hernia without obstruction or gangrene; E11.9 Type 2 diabetes mellitus without complications; E03.9 Hypothyroidism, unspecified; E78.5 Hyperlipidemia, unspecified; N40.1 Benign prostatic hyperplasia with lower urinary tract symptoms; G20 Parkinson's disease; Z79.899 Other long term (current) drug therapy
CPT/HCPCS: 36415; 80053; 85025

== ENCOUNTER → 2021-04-02 15:35 | Outpatient (CLI) | payer MEDICARE, SELFPAY ==
[2021-04-02 17:44] LABS: Absolute Lymphocyte Count 1.37 X10^3/uL (0.83-4.51); Basophil# 0.04 X10^3/uL; Basophil% 0.6 % (0-1); Eosinophil# 0.21 X10^3/uL; Eosinophils% 3.4 % (0-5); Hematocrit 38.5 % (40-54); Hemoglobin 12.5 g/dL (13.0-16.5); Lymphocyte # 1.37 X10^3/ul (0.83-4.51); Mean Corp Hgb Conc 32.5 g/dL (32-36); Mean Corpuscular Hgb 31.2 pg (27.0-32.0); Mean Platelet Vol. 10.1 fl (6.2-12.0); Monocyte# 0.63 X10^3/uL; Monocyte% 10.1 % (0-10); NRBC Flagged by Analyzer 0 % (0-5); Neutrophil # 3.96 X10^3/uL (2.7-7.7); Neutrophil % 63.4 % (47-70); Platelet Count 252 K/mm3 (150-450); RBC Distribution Width CV 15.8 % (11.6-14.6); RBC Distribution Width SD 55.8 fl (35.1-43.9); Red Blood Count 4.01 M/mm3 (4.6-6.2); White Blood Count 6.2 K/mm3 (4.4-11.0)
[2021-04-02 18:01] LABS: ALB/GLOB Ratio 0.8 RATIO (0.9-2.4); AST(SGOT) 22 U/L (15-37); Alanine Aminotransfer ALT/SGPT 16 U/L (16-61); Albumin, Serum 3.4 g/dL (3.2-5.0); Alkaline Phosphatase 66 U/L (45-117); Anion Gap 7 (5-15); BUN 12 mg/dL (7-18); BUN/Creat Ratio 12.1 RATIO (10-20); Calcium,Total 9.4 mg/dL (8.5-10.1); Chloride 105 mmol/L (98-107); Creatinine, Serum 0.99 mg/dL (0.70-1.30); EST Glomerular Filtration Rate 78 mL/min (>60); Est Glom Filt Rate - Afr Amer 94 mL/min (>60); Globulin 4.4 g/dL (2.2-4.2); Glucose 119 mg/dL (74-106); Potassium 3.9 mmol/L (3.5-5.1); Protein, Total 7.8 g/dL (6.4-8.2); Sodium Level 138 mmol/L (136-145)
== END ==
PROVIDERS: PCP Family Medicine; Referring Provider Internal Medicine Rheumatology; Visit Provider Internal Medicine Rheumatology
DX: M05.70 Rheumatoid arthritis with rheumatoid factor of unspecified site without organ or systems involvement (principal); M19.041 Primary osteoarthritis, right hand; M79.7 Fibromyalgia; M47.897 Other spondylosis, lumbosacral region; G20 Parkinson's disease; Z79.899 Other long term (current) drug therapy
CPT/HCPCS: 36415; 80053; 85025

== ENCOUNTER → 2021-06-27 11:20 | Outpatient (CLI) | payer MEDICARE, SELFPAY ==
[2021-06-27 15:27] LABS: Absolute Lymphocyte Count 1.17 X10^3/uL (0.83-4.51); Absolute Neutrophil Count 3.2 X10^3/uL (2.0-7.7); Basophil# 0.05 X10^3/uL; Eosinophil# 0.24 X10^3/uL; Eosinophils% 4.6 % (0-5); Hematocrit 42.2 % (40-54); Hemoglobin 13.7 g/dL (13.0-16.5); Lymphocyte # 1.17 X10^3/ul (0.83-4.51); Lymphocyte % 22.5 % (19-41); Mean Corp Hgb Conc 32.5 g/dL (32-36); Mean Corpuscular Volume 98.6 fL (80-94); Monocyte# 0.58 X10^3/uL; Monocyte% 11.1 % (0-10); NRBC Flagged by Analyzer 0 % (0-5); Neutrophil # 3.17 X10^3/uL (2.7-7.7); Neutrophil % 60.8 % (47-70); Platelet Count 230 K/mm3 (150-450); RBC Distribution Width CV 15.9 % (11.6-14.6); RBC Distribution Width SD 58.6 fl (35.1-43.9); Red Blood Count 4.28 M/mm3 (4.6-6.2); White Blood Count 5.2 K/mm3 (4.4-11.0)
[2021-06-27 16:01] LABS: ALB/GLOB Ratio 0.7 RATIO (0.9-2.4); AST(SGOT) 24 U/L (15-37); Alanine Aminotransfer ALT/SGPT 36 U/L (16-61); Albumin, Serum 3.3 g/dL (3.2-5.0); Alkaline Phosphatase 80 U/L (45-117); Anion Gap 5 (5-15); BUN 10 mg/dL (7-18); BUN/Creat Ratio 8.5 RATIO (10-20); Calcium,Total 9.6 mg/dL (8.5-10.1); Chloride 104 mmol/L (98-107); Creatinine, Serum 1.18 mg/dL (0.70-1.30); EST Glomerular Filtration Rate 63 mL/min (>60); Est Glom Filt Rate - Afr Amer 77 mL/min (>60); Globulin 4.7 g/dL (2.2-4.2); Glucose 147 mg/dL (74-106); Sodium Level 137 mmol/L (136-145)
== END ==
PROVIDERS: PCP Family Medicine; Referring Provider Internal Medicine Rheumatology; Visit Provider Internal Medicine Rheumatology
DX: M05.70 Rheumatoid arthritis with rheumatoid factor of unspecified site without organ or systems involvement (principal); M19.041 Primary osteoarthritis, right hand; M79.7 Fibromyalgia; M47.897 Other spondylosis, lumbosacral region; G20 Parkinson's disease; K21.9 Gastro-esophageal reflux disease without esophagitis; K44.9 Diaphragmatic hernia without obstruction or gangrene; E11.9 Type 2 diabetes mellitus without complications; E03.9 Hypothyroidism, unspecified; E78.5 Hyperlipidemia, unspecified; N40.1 Benign prostatic hyperplasia with lower urinary tract symptoms; G47.33 Obstructive sleep apnea (adult) (pediatric); Z79.899 Other long term (current) drug therapy
CPT/HCPCS: 36415; 80053; 85025

== ENCOUNTER 2021-08-11 10:30 | Outpatient (RCR) | payer MEDICARE, SELFPAY ==
--- NOTE | 2021-07-15 11:01 | HP.PTEVAL_ITS ---
Patient's Visit Information SALVADOR FREIRE is a 76 year old M referred to Physical Therapy by BRE ANGELO with a diagnosis of PD. Date of Evaluation: 07/15/21 Physical Therapist: SOO Peguero - Visit Plan Frequency: 2x /Week Duration: 4 Weeks Plan: 2X/ week for 3-4 weeks for balance activities, L LE strengthening, gait training with and without horizontal head turns, dual tasking/brain work with I H&W program (add to his current H&W program with PD exercises) - Subjective Pt has PD in his L arm and arthritis in his L arm. He is seeing Dr Palacio and has RA and OA and took a second opinion and said only has OA. They then sent him to the therapist. His arm pain in his L wrist and he can hardly use his L arm properly. He no pain in the LE. He has some pain in the morning from knee to ankle and only when laying down in the morning and not during the day. When he walks it goes away. He has fallen twice in his home and now has a rollator and was walking with a cane before. He comes to 3-4 times a week for stretching and TM etc. Pt sees the Dr in August. He has no freezing moments. He was taking PD meds and he stopped all the meds. He has Lewy Body Syndrome. He has stiffness in his back. He feels that his legs buckle in when he stands. He sits in the shower. He has a stiff neck most of the time. He has slowed down a lot and can not get out of bed immed and same thing with getting in and out of the car. Stairs: He goes very slow on the stairs holding onto 1 railing and sometimes takes his cane with him. He struggles and sometimes take 2-3 times to get out of a chair. Pt wants to be able to golf in the spring. - Pain L wrist pain Pain Intensity (Out of 10): 5 - Objective Gait: Walks with a rollator into dept. He uses a rollator into the Dept. With out the rollator he walks with good stride length without catching his foot and no veering. He does veer a little when he does horizontal and vertical head movements. LE MMT: R hip flex 4-/5 and R hip flex 4+/5, R knee ext 4-/5 and L 4/5, B knee flex 4/5, B hip abd 4-/5. sit to stand: pt is able to get up today on first attempt using B arm/chair rails. FGA: 17. Pt struggles with walking with horizontal head movements and walking BW and with EC. Standing recip opp arm and leg .... pt can do X 10 in a row after he got the hang of it... once introduced a cognitive task like counting by 2's he was unable to keep up the sequence. He struggled with rolling from side to side and felt like he was falling off the mat table when not even close. He has decreased trunk roation of thoracic and L-spine. He has slight flexed shoulder posture - Balance/Special Test Scores Functional Gait Assessment Score: 17 % Disability: 43.3400 Lower Extremity Functional Score: 28 - Goals Goal 1:: I HEP to do as part of his H&W program Goal Time Frame: 4-6 Weeks Goal 2:: Increase L LE strength by 1/2 muscle grade (at time of the eval: LE MMT: R hip flex 4-/5 and R hip flex 4+/5, R knee ext 4-/5 and L 4/5, B knee flex 4/5, B hip abd 4-/5)/ Goal Time Frame: 4-6 Weeks Goal 3:: Increase FGA score by 3 points to decrease fall risk (score of 17 at eval) Goal Time Frame: 4-6 Weeks Goal 4:: Be able to walk with head turns without feeling like he will fall BW. Goal Time Frame: 4-6 Weeks - Rehabilitation Potential Rehabilitation Potential: Good - Anticipated Interventions Patient/Client Instruction: Educate patient on: Condition, Plan of Care For the Purpose of:: To improve muscle performance and motor function, To improve ability to perform ADL's, To increase tolerance to activity/condition/position, To improve performance and independence with ADL's, To decrease level of supervision to perform tasks, To improve ability of physical actions for home/community/work/leisure, To improve gait and locomotor functions, To increase flexibility/ROM, To improve balance, To improve safety with gait Therapeutic Exercise to Include: Strength training, Balance training, Coordination, Postural training, Flexibilty training, Gait and locomotor training, Neuromotor development, Active ROM, Dynamic Lumbar Stabilization, Sca pular Strength/Stabilization For the Purpose of:: To increase tolerance to activity/condition/position, To improve performance and independence with ADL's, To improve ability of physical actions for home/community/work/leisure, To improve gait and locomotor functions, To improve health of tissue, To decrease soft tissue restriction, To increase flexibility/ROM, To improve balance, To improve safety with gait Functional Training to Include: Gait training For the Purpose of:: To improve gait and locomotor functions, To improve safety with gait Thank you for the opportunity to evaluate your patient. For Medicare and Medicare HMO plans, please review the plan of care and approve it. It will need to be FAXED BACK to us at [phone] for Medicare purposes. For Medicare only, by signing this I certify the plan of care. Please let me know if there are questions or concerns regarding this plan of care. Physician Signature: Date:
--- NOTE | 2021-07-16 16:54 | HP.OTEVAL ---
Patient's Visit Information SALVADOR FREIRE is a 76 year old M, referred to Occupational Therapy by BRE ANGELO, with a diagnosis of PD, joint pain, fibro. Date of Evaluation: 07/15/21 Occupational Therapist: Rocio Maurer, FREDY/Ximena, CHT - Subjective This 76 year old male was seen for OT eval with dx of PD and OA multiple sites, DM, Fibromyalgia, Myalgia. pt states has slowed down last few months. noticed increase difficulty with long distance walking, uses rollator for longer distances, but ambulates without for short distance. pt states he has difficulty with daily tasks due to left UE weakness and tremor. left wrist pain with movement and wt. bearing. pt states he has OA in many joints but has concerns with limited wrist ROM and pain with daily tasks. pt states increase difficulty with buttons, and small objects limiting his ind. with ADls and IADLs. Pt interests in golfing, yoga, and playing [employer] drums - ADLs Dressing: Button shirt, Coat, Socks Fasteners: Buttons, Zippers, Snaps Eating: Cut food Comments: pt lives with his and she can assist him as needed. - Pain left wrist 3 Pain Intensity Range: 4, 5 - ROM Forearm: Right/left WNL pain with left forearm Wrist: right 60/45 left 15/30 pain with extension ROM Comments: pt demo full ROM of digits WNL - Strength Shoulder: right/left 4/5 Elbow: right/left 4/5 Forearm: right/left 4/5 [employer] Work[employer]: right 55# left 45# Lateral Pinch: right 16# left 14# Tripod Pinch: right 14# left 10# - Sensation Sensation Comments: pt demo full digit ROM - Movement Tremors: left UE more than right Movement Comments: Bradykinesia and resting tremors - Quick DASH-Disab of Arm,Shoulder& Hand Quick DASH Score: 50.0000 - Goals Goal:: pt will demo a increase in BUE MMT by 1/2 muscle grade to increase ind. with ADls by d/c Goal:: pt will demo a increase in left wrist ROM by 20* to increase pts ind. with dressing by d/c Goal:: pt will report no pain greater than 2/10 with use of left UE by d/c Goal:: pt will demo the ability to manipulate 4 buttons in less than 60 sec. by d/c to increase pt ind. with ADLs. Goal:: pt will demo understanding of joint protection and energy conservation ede. to decrease stress on joints by d/c Goal:: pt and pts family will demo understanding of adaptive eq. to use with ADLs and IADls to increase safety and ind. by end of 4th session. Goal:: pt will demo the ability to perform his UB exercise with use of good wrist ergonomics to limit joint stress and pain with ex by 4th visit- ( pt has health and wellness membership-ensure good wrist mechanics with ex) - Rehabilitation General Assessment: pt demo with left UE PD tremor weakness and limited FMS increasing need for assist with dressing and other daily tasks. pt demo with limited left wrist ROM and pain with use for ADLS. pt would benefit from skilled OT services 2x week for 4 weeks to assist pt in a increase ind, with ADLs and IADls. Today therapist ed. pt on joint protection ede. and therapy will initiate PROM. and light Rehabilitation Potential: Good - Anticipated Interventions A/AAROM/PROM, Strengthening, Modalities, Orthoses, Joint Protection/Energy Conservation, Ergonomic Education, Fine Motor Coord/[place], Education re assistive Equipment, Education re Diagnosis, Home Program - Visit Plan Frequency: 1-2x /Week Duration: 6 Weeks General Plan: will initiate therapy with left wrist to increaser left wrist ROM and decrease left wrist pain. followed with lifting ergo for H&W program TEXT: Thank you for the opportunity to evaluate your patient. For Medicare and Medicare HMO plans, please review the plan of care and approve it. It will need to be FAXED BACK to us at [phone] for Medicare purposes. Please let me know if there are questions or concerns regarding this plan of care. Physician Signature: Date:
--- NOTE | 2021-08-11 11:08 | HP.OTDCSUM ---
It has been my pleasure to treat SALVADOR FREIRE under orders from BRE ANGELO, for the diagnosis of PD, joint pain, fibro for a total of 5 visit(s). Please see the following information for a summary of their discharge status. % Improvement: 20 Objective/Function: Therapist able to ed. pt on modalities to decrease pain in left wrist-. pt has no pain with left wrist at rest but continues to have pain with wrist ext. therapist ed. pt on light stretch to increase ROM but not to increase pain- therapist also ed. pt on joint protection and bracing if wrist pain gets to uncomfortable - pt demo understanding- pt responded well with use of paraffin bath and was receptive to one for home use- pt agree to continue his health and wellness program. pt d/c with HEP Patient Goals: Decrease Pain, Improve Fine Motor Skills, Use Hand/Wrist/Arm Normally Again, Increase ROM Goal:: pt will demo a increase in BUE MMT by 1/2 muscle grade to increase ind. with ADls by d/c Goal:: pt will demo a increase in left wrist ROM by 20* to increase pts ind. with dressing by d/c Goal:: pt will report no pain greater than 2/10 with use of left UE by d/c Goal:: pt will demo the ability to manipulate 4 buttons in less than 60 sec. by d/c to increase pt ind. with ADLs. Goal:: pt will demo understanding of joint protection and energy conservation ede. to decrease stress on joints by d/c Goal:: pt and pts family will demo understanding of adaptive eq. to use with ADLs and IADls to increase safety and ind. by end of 4th session. Goal:: pt will demo the ability to perform his UB exercise with use of good wrist ergonomics to limit joint stress and pain with ex by 4th visit- ( pt has health and wellness membership-ensure good wrist mechanics with ex) Plan: Cont POC Discharge Comments: Therapist able to ed. pt on modalities to decrease pain in left wrist-. pt has no pain with left wrist at rest but continues to have pain with wrist ext. therapist ed. pt on light stretch to increase ROM but not to increase pain- therapist also ed. pt on joint protection and bracing if wrist pain gets to uncomfortable - pt demo understanding- pt responded well with use of paraffin bath and was receptive to one for home use- pt agree to continue his health and wellness program. pt d/c with HEP If there are questions or concerns regarding this patient's occupational therapy, please fell free to call me at [phone]. Thank you for the referral of this patient. Sincerely, Rocio Maurer, OTR/L, CHT
--- NOTE | 2021-08-11 11:10 | HP.PTREVAL ---
BRE ANGELO, It has been my pleasure to treat SALVADOR FREIRE over the last 5 visits for PD. Please see the progress note below for an update on the physical therapy plan of care! Subjective: Pt reports that he is trying to do the exercises that we have been done in here. He is not sure it is helping. He is working out 5X/ week in the gym. He is walking in with his cane today as his walker is in the car. He feels fine with the cane. No pain. he feels that his balance is still not great. Sometimes when he is shaving his knees will feel like they will buckle. Objective/Function: FGA: 23. LE MMT: R hip flex 4/5 and L 4+/5, B knee ext 4/5, B knee flex 4/5 Plan Plan: Pt will call in by 09/22/20 if he feels that he needs additional PT Balance/Gait/Functional tests - Balance/Special Test Scores Functional Gait Assessment Score: 23 % Disability: 23.3400 Lower Extremity Functional Score: 50 Goals Goal 1:: I HEP to do as part of his H&W program Goal Time Frame: 4-6 Weeks Goal Progress: Goal Met Goal 2:: Increase L LE strength by 1/2 muscle grade (at time of the eval: LE MMT: R hip flex 4-/5 and R hip flex 4+/5, R knee ext 4-/5 and L 4/5, B knee flex 4/5, B hip abd 4-/5)/ Goal Time Frame: 4-6 Weeks Goal 3:: Increase FGA score by 3 points to decrease fall risk (score of 17 at eval) Goal Time Frame: 4-6 Weeks Goal 4:: Be able to walk with head turns without feeling like he will fall BW. Goal Time Frame: 4-6 Weeks Anticipated Interventions Patient/Client Instruction: Educate patient on: Condition, Plan of Care For the Purpose of:: To improve muscle performance and motor function, To improve ability to perform ADL's, To increase tolerance to activity/condition/position, To improve performance and independence with ADL's, To decrease level of supervision to perform tasks, To improve ability of physical actions for home/community/work/leisure, To improve gait and locomotor functions, To increase flexibility/ROM, To improve balance, To improve safety with gait Therapeutic Exercise to Include: Strength training, Balance training, Coordination, Postural training, Flexibilty training, Gait and locomotor training, Neuromotor development, Active ROM, Dynamic Lumbar Stabilization, Scapular Strength/Stabilization For the Purpose of:: To increase tolerance to activity/condition/position, To improve performance and independence with ADL's, To improve ability of physical actions for home/community/work/leisure, To improve gait and locomotor functions, To improve health of tissue, To decrease soft tissue restriction, To increase flexibility/ROM, To improve balance, To improve safety with gait Functional Training to Include: Gait training For the Purpose of:: To improve gait and locomotor functions, To improve safety with gait Please do not hesitate to contact me at [phone] by phone or if you have questions or concerns regarding this new plan of care! Sincerely, Catie Fuchs MPT
== END 2021-08-11 19:00 | disposition home or self-care (01) ==
LOC: OT 10:30
PROVIDERS: PCP Family Medicine
DX: M79.7 Fibromyalgia (principal); M25.50 Pain in unspecified joint; M65.322 Trigger finger, left index finger; G20 Parkinson's disease; R53.81 Other malaise; R53.83 Other fatigue; Z79.899 Other long term (current) drug therapy; Z86.39 Personal history of other endocrine, nutritional and metabolic disease; Z87.39 Personal history of other diseases of the musculoskeletal system and connective tissue
CPT/HCPCS: 97110; 97140; 97161; 97166; 97530

== ENCOUNTER 2021-11-24 13:30 | Outpatient (RCR) | payer MEDICARE, SELFPAY ==
--- NOTE | 2021-10-30 12:52 | HP.PTEVAL ---
Patient's Visit Information SALVADOR FREIRE is a 76 year old M referred to Physical Therapy by Dr. Wil Yan MD with a diagnosis of NECK PAIN AND STIFFNESS. Date of Evaluation: 10/30/21 Physical Therapist: Birdie Garay PT, Cert MDT - Visit Plan Frequency: 2x /Week Duration: 4-6 Weeks Plan: US, NECK ROM, AND POSTURE CORRECTION/STRENGTHENING, INSTRUCTION IN APPROPRIATE BODY MECHANICS AND ACTIVITY MODIFICATIONS. CESIA UE ROM, STRETCHING AND STRENGTHENING. HEP INSTRUCTION. - Subjective Diagnosis: NECK PAIN AND STIFFNESS. Work/Leisure: RETIRED FROM THE [employer]. GOLFED LAST SESSION ABOUT 2 TIMES A WEEK BUT LIMITED. Present symptoms: NECK PAIN AND STIFFNESS THAT HINDERS DRIVING. LEFT SHLD PAIN MAKING IT DIFFICULT TO PUT COAT ON. NO RIGHT SHLD PAIN, NUMBNESS OR TINGLING. HE DENIES L UE NUMBNESS AND TINGLING. Present since: GREATER THAN 2 WEEKS AGO. Pain Scale: Worst - 7/10 Least - 2/10. Currently: 01/30. Commenced as a result of: NO APPARENT REASON OTHER THAN LYING IN BED WATCHING TV WITH PILLOWS UNDER NECK. ALSO REPORTS HE MIGHT HAVE DONE IT ON A FLY MACHINE HERE AT [facility]. LAST TIME HE EX'D HERE AT [facility] WAS 2 DAYS AGO. HE REPORTS THAT EVEN THOUGH IT HURTS HE PUSHES THROUGH MUCH POSSIBLE ANYWAY. Symptoms at onset: NECK. Worse: TRYING TO TURN HEAD. Better: KEEPING HEAD STRAIGHT. MASSAGE YESTERDAY HELPED A LITTLE BIT. Disturbed sleep: MAKING IT DIFFICULT TO GET TO SLEEP BUT ONCE ASLEEP IT DOES NOT WAKE HIM UP. Previous history/Previous treatment: UNREMARKABLE. This episode: NONE. Dizziness: NO. Tinnitis: NO. Nausea: NO. Shortness of Breath: NO. Difficulty Swollowing: NO. Gait: NORMAL. Accidents: NO. Unexplained weight loss: NO. Imaging: NONE. PMH/Recent major surgery: PARKINSON'S DZ DX'D ABOUT A YEAR AGO. POSSIBLE FIBROMYALGIA. NIDDM. POSSIBLE HEART CONDITION THAT HE IS SUPPOSED TO HAVE AN MRI FOR IN THE NEXT FEW MONTHS. THYROID DZ. HIGH CHOLESTEROL. GOES TO FUNCTIONAL MEDICINE IN [place]. LEFT WRIST PAIN - RECENTLY SEEN IN OT WITHOUT SUCCESS. OTHER: PATIENT REPORTS HE VERY RECENTLY SPOKE WITH A PARKINSON'S SPECIALIST [place] AND HE RECOMMENDED THAT HE NOT DO ANY GEOVANI LIFTING BUT HE HASN'T DECIDED IF HE IS GOING TO FOLLOW THAT OR NOT. - Objective Sitting Posture/Standing Posture: POOR. FH. RSH'S. INCREASED KYPHOSIS. Active Correction of posture: NE. ONLY ABLE TO PARTIALLY CORRECT. Other Observations: INDEP TRANSFERS. ABLE TO INDEP'LY TAKE COAT OFF BUT WITH DIFFICULTY. Motor deficit: CESIA UE'S 5/5 WITH MMT'ING EXCEPT SHLD'S 4/5. INCREASED L SHLD PAIN WITH SHLD TESTING. Sensory deficit: CESIA UE LIGHT TOUCH SENSATION APPEARS INTACT AND SYMMETRICAL. ROM deficit: CESIA ACTIVE SHLD FLEXION TO 115 DEG. NO PAIN REACHING WITH RIGHT UE BUT REACHING WITH L UE PROVOKES LEFT SHLD PAIN. Dural Signs: NEGATIVE CESIA UE'S. Cervical Mvmt Loss: Flex: NIL. Pro: NIL. Ext: FATMATA. Ret: FATMATA. RSB: MOD. LSB: FATMATA. R Rot: MOD TO FATMATA. L Rot: MOD TO FATMATA. PATIENT C/O INCREASED NECK PAIN WITH CERVICAL ROM TESTING ALL PLANES AND STRAIN. Postural strength: POOR. Palpation: INCREASED MUSCLE TONE CESIA CERVICAL MUSCULATURE. TENDERNESS WITH PALPATION ALONG OCCIPUT, CERVICAL SPINE, CERVICAL MUSCULATURE AND ESPECIALLY C56 REGION. TREATMENT: NEUROMUSCULAR REEDUCATION - RETRAINING OF MVMT AND POSTURE FOR SITTING, LYING AND STANDING ACTIVITIES. PATIENT COMMUNICATD A GOOD UNDERSTANDING OF INSTRUCTIONS AFTER GIVEN. - Goals Goal 1:: DECREASE C/O NECK AND LEFT UE PAIN Goal Time Frame: 4-6 Weeks Goal 2:: IMPROVE HEAD TURNING, RECREATIONAL AND DRIVING FUNCTION Goal Time Frame: 4-6 Weeks Goal 3:: INSTRUCT IN PROPHYLAXIS Goal Time Frame: 4-6 Weeks - Anticipated Interventions Patient/Client Instruction: Educate patient on: Condition, Plan of Care, Risk Factors For the Purpose of:: To improve self management Therapeutic Exercise to Include: Strength training, Body mechanics, Postural training, Flexibilty training, Neuromotor development, Scapular Strength/Stabilization For the Purpose of:: To increase ROM, To improve muscle performance and motor function, To increase tolerance to activity/condition/position, To improve ability of physical actions for home/community/work/leisure Cryotherapy (ice pack, ice massage): Yes Thermo therapy (hot pack): Yes Ultrasound (thermal/non thermal): Yes For the Purpose of:: To decrease pain, To improve nutrient delivery to tissue Thank you for the opportunity to evaluate your patient. For Medicare and Medicare HMO plans, please review the plan of care and approve it. It will need to be FAXED BACK to us at [phone] for Medicare purposes. For Medicare only, by signing this I certify the plan of care. Please let me know if there are questions or concerns regarding this plan of care. Physician Signature: Date:
--- NOTE | 2021-11-24 14:04 | HP.PTDCSUM ---
It has been my pleasure to treat SALVADOR FREIRE referred by Dr. Wil Han MD, with the diagnosis of NECK PAIN AND STIFFNESS for a total of 8 visit(s). Discharge Date: 11/24/21 Please see the following information for a summary of their discharge status. Subjective: PATIENT REPORTS TEMPORARY RELIEF ONLY WITH TREATMENTS. NECK Pain Intensity (Out of 10): Unrated % Improvement: 0 Objective/Function: PATIENT WAS SEEN TODAY FOR RE-ASSESSMENT OF PROGRESS TOWARD THE SET PT GOALS AND THE NEED FOR FURTHER PHYSICAL THERAPY VS READINESS FOR DISCHARGE. UPON EXAM TODAY: THERE ARE NO SIGNIFICANT CHANGES SINCE INITIAL EVAL AND SUBJECTIVELY PATIENT IS ONLY REPORTING TEMPORARY BENEFIT. HE IS APPROPRIATE FOR DISCHARGE DUE TO LACK OF PROGRESS Goal 1:: DECREASE C/O NECK AND LEFT UE PAIN Goal Progress: Not Progressing Goal 2:: IMPROVE HEAD TURNING, RECREATIONAL AND DRIVING FUNCTION Goal Progress: Not Progressing Goal 3:: INSTRUCT IN PROPHYLAXIS Goal Progress: Not Progressing Plan: D/C DUE TO LACK OF PROGRESS. PATIENT APPREARS AGREEABLE AND IS GOING TO FOLLOW UP WITH DR. HAN. If there are questions or concerns regarding this patient's physical therapy, please feel free to call me at [phone]. Thank you for the referral of this patient. Sincerely, Birdie Garay, PT, Cert MDT Balance/Gait/Functional tests - Balance/Special Test Scores Oswestry Neck Score: 5
== END 2021-11-24 14:15 | disposition home or self-care (01) ==
LOC: PT 13:30
PROVIDERS: PCP Family Medicine; Referring Provider Family Medicine; Visit Provider Family Medicine
DX: M43.6 Torticollis (principal); M54.2 Cervicalgia
CPT/HCPCS: 97035; 97112; 97140; 97162; 97164; 97530

== ENCOUNTER 2022-11-04 09:00 | Outpatient (RCR) | payer MEDICARE, SELFPAY ==
--- NOTE | 2022-10-16 11:58 | HP.PTEVAL ---
Patient's Visit Information SALVADOR FREIRE is a 77 year old M referred to Physical Therapy by ONIEL CONNOR with a diagnosis of Neck pain. Date of Evaluation: 10/16/22 Physical Therapist: Branden Patrick, PT, ATC - Visit Plan Frequency: 1x/Week Duration: 3 Weeks Plan: Issue and instruct pt on HEP of scap strengthening ex's. Manual DTR and mobs to c/s - Subjective Pt reports he was diagnosed with Parkinson's Disease 2 years ago, and notes he has had intermittent pain since. Pt notes he gets really sore and stiff after he drives. Pt denies sleep difficulty at this time secondary to pain. Pt reports he likes to play the flute, and notes he experiences increased pain when he holds his head to the right for an extended period of time. Pt denies tingling or numbness at this time in his UE's. Pt reports he has been ambulating lately with a cane secondary to his unsteady gait. Pt reports he has had 2 falls in the past. Pt also notes when he has conversations with new people, he tends to tense up and this also results in increased pain. Pt has had no Dx tests at this time. Pt reports he has been going to a message therapist twice a week for a while which helps to decrease his pain, but doesn't fix the problem. 3/10 pain level at rest, 6/10 pain at worst. - Pain Neck pain Pain Intensity (Out of 10): 3 Pain Intensity Range: 6 - Objective Neuro: B UE sensation is WNL to light touch. B bicipital reflex= 1/3. C/S ROM: Pt is moderately limited with L SB, L rot, retraction, and ext of c/s. All other motions are WNL. MMT: B UE's are grossly 4+/5. Posture: Pt sits and stands with a decrease in L/S lordosis, increase in T/S kyphosis, and forward head posture. - Balance/Special Test Scores Oswestry Neck Score: 9 - Goals Goal 1:: I with HEP after 2 PT visits. Goal Time Frame: 2 Weeks - Rehabilitation Potential Physical Therapy Diagnosis: Pt has neck pain, limited c/s ROM, and difficulty with driving secondary to poor posture Rehabilitation Potential: Good - Anticipated Interventions Patient/Client Instruction: Educate patient on: Condition, Plan of Care For the Purpose of:: To improve self management Therapeutic Exercise to Include: Strength training, Body mechanics, Postural training, Active ROM, Scapular Strength/Stabilization For the Purpose of:: To decrease pain, To decrease soft tissue restriction Thermo therapy (hot pack): Yes For the Purpose of:: To decrease pain Thank you for the opportunity to evaluate your patient. For Medicare and Medicare HMO plans, please review the plan of care and approve it. It will need to be FAXED BACK to us at [phone] for Medicare purposes. For Medicare only, by signing this I certify the plan of care. Please let me know if there are questions or concerns regarding this plan of care. Physician Signature: Date:
--- NOTE | 2023-02-24 09:32 | HP.PTDCSUM ---
Discharge Summary D/C summary: It has been my pleasure to treat SALVADOR FREIRE referred by ONIEL CONNOR, with the diagnosis of Neck pain for a total of 3 visit(s). Discharge Date: Please see the following information for a summary of their discharge status. Subjective Subjective: Pt reports minimal pain today. Pt reports he is ready for his gym routine. Pain Neck pain: Pain Intensity (Out of 10): 1 Overall Improvement % Improvement: 50 Objective Objective/Function: Pt is now I with HEP Goals Goal 1:: I with HEP after 2 PT visits. Plan Plan: Discharge to HEP D/C Information d/c sentence: If there are questions or concerns regarding this patient's physical therapy, please feel free to call me at [phone]. Thank you for the referral of this patient. Sincerely, Branden Patrick, PT, ATC Balance/Gait/Functional tests Balance/Special Test Scores Oswestry Neck Score: 9
== END 2022-11-04 19:00 | disposition home or self-care (01) ==
LOC: PT 09:00
PROVIDERS: PCP Family Medicine
DX: M47.812 Spondylosis without myelopathy or radiculopathy, cervical region (principal)
CPT/HCPCS: 97110; 97140; 97161

== ENCOUNTER → 2023-05-11 | Outpatient (CLI) | payer MEDICARE, SELFPAY ==
--- NOTE | 2023-05-11 15:08 | ST.MBS ---
Modified Barium Swallow Patient Information Study Date: 05/11/23 Study Time: 13:00 Direct Billable Minutes: 95 Total Minutes procedure & reportin Diagnosis: Parkinson's Disease (G20), Dysphagia (R13.10) Referring Physician: Wil Yan Reason for Referral: Objectively assess swallow function, assess risk for aspiration, and determine recommendations for least restrictive diet textures and compensatory strategies to improve safety of swallow. Medical History: The patient is an 78-year-old male who presented to [email or web address] 04/09/2023 for concerns with speech clarity regression d/t Parkinson's disease dx. He was recommended for speech therapy to address deficits in speech clarity following evaluation. He was additionally recommended for MBSS to objectively evaluate swallow function and aspiration risk d/t Parkinson's dx. Additional PMH includes GERD, DM type II, fibromyalgia, asthma (SEE EMR for full PMH). Pt denies swallowing difficulty at this time. Current Diet Ordered: Regular textures / Thin liquids Dentition: WNL Respiratory Status: Oxygenating on Room Air Penetration-Aspiration Scale Penetration-Aspiration Scale: OBJECTIVE ASSESSMENT OF SWALLOW FUNCTION (QUANTITATIVE ? PER TRIAL): PENETRATION / ASPIRATION SCALE (KEENAN): 1 = does not enter airway 2 = enters airway/above vocal folds/ejected 3 = enters airway/above vocal folds/not ejected 4 = enters airway/contacts vocal folds/ejected 5 = enters airway/contacts vocal folds/not ejected 6 = enters airway/below vocal folds/ejected 7 = enters airway/below vocal folds/not ejected despite effort 8 = enters airway/below vocal folds/no effort VIDEOFLOROSCOPIC SCALE SCORE (KEENAN): Grade I = aspiration of material that has penetrated into the laryngeal vestibule, intact cough reflex Grade II = aspiration < 10 % of the bolus, intact cough reflex Grade III = aspiration of < 10 % of the bolus, reduced cough reflex or aspiration of > 10 % of the bolus, intact cough reflex Grade IV = aspiration of > 10 % of the bolus, reduced cough reflex Penetration-Aspiration Scale Score Thin Liquid via teaspoon: Result: 1= does not enter airway Thin Liquid via teaspoon Trial 2: Result: 1= does not enter airway Thin liquids via large sip from cup: Result: 2= enter airway/above vocal folds/ejected Bode thick liquid via large sip from cup: Result: 1= does not enter airway Pudding via teaspoon with esophageal screen: Result: 1= does not enter airway 1/2 Cookie: Result: 1= does not enter airway Thin liquid via sequential sips from straw: Result: 3= enters airways/above vocal folds/not ejected Thin liquids via sequential sips from cup: Result: 1= does not enter airway Oral Phase Labial Seal: Escape beyond mid-chin (thin by tsp) Tongue Control During Bolus Hold: Posterior escape of less than half of bolus Bolus Preparation/Mastication: Slow prolonged chewing/mashing with complete recollection Bolus Transport/Lingual Motion: Repetitive/disorganized tongue motion (minimal lingual pumping) Oral Residue: Majority of bolus remaining (piecemeal deglutition with sips and bites, which effectively cleared with use of multiple swallows) Pharyngeal Phase Initiation of Pharyngeal Swallow: Bolus head at posterior laryngeal surgace of epiglottis (thin by straw) Soft Palate Elevation: No bolus between soft palate and pharyngeal wall Laryngeal Elevation: Partial superior movement thyroid cart/partial apprx aryt-epig petiole Anterior Hyoid Excursion: Complete anterior movement Epiglottic Movement: Complete inversion Laryngeal Vestibule Closure at Height of Swallow: Incomplete; narrow column of air/contrast in laryngeal vestibule Pharyngeal Stripping Wave: Present - diminished Pharyngoesophageal Segment Opening: Parital distension and partial duration; parital obstruction of flow Tongue Base Retraction: Wide column of contrast between tongue base & post. pharyngeal wall Pharyngeal Residue: Collection of residue within or on pharyngeal structures Esophageal Phase Esophageal Clearance: Esophageal retention w/ retrograde flow below pharyngoesophageal seg. Treatment Strategies Effects of treatment strategies attemped:: No straw = effective Diagnosis/Impression Diagnosis: Mild oropharyngeal phase dysphagia (R13.12) Impression: The oral phase is primarily marked by... -Mild lingual pumping for A-P transport of certain trials of thin liquids. -Decreased bolus control, most notable with posterior loss of thin liquids via straw to the posterior surface of the epiglottis. -Patient independently consumes large sips, which required multiple swallows to clear sips from oral cavity. The pharyngeal phase is primarily marked by... -Mildly decreased laryngeal elevation, which contributed to trace laryngeal penetration of thin liquids via straw that did not fully eject from the laryngeal vestibule. No aspiration observed during the study. -Moderately decreased tongue base retraction, mildly decreased pharyngeal stripping wave, and mildly decreased UES opening/duration, which contributed to mild-moderate pharyngeal residues. Patient cleared a majority of pharyngeal residues with independent use of multiple swallows as needed during the study. The esophageal phase is primarily marked by... -Minimal esophageal retention of pudding in lower esophagus, which mostly cleared following liquid wash of thin liquids via straw. -Thin liquids via straw demonstrated min retrograde flow in esophagus, which remained well below the UES. Recommendations Diet: Regular Textures and Thin Liquids Compensatory Strategies: Small Bites, Small Sips, No Straws, Slow Rate (sips one at a time), Multiple Swallows (continue utilizing as needed to clear oral and pharyngeal residues), Alternate bites/solids and sips/liquids, Sitting upright and Remain sitting upright for 30 minutes after PO intake Recommend Repeat Modified Barium Swallow: TBD Need for Skilled Speech Therapy Services: Yes Comment: Will recommend the patient follow-up with outpatient speech therapy for further education re: recommended strategies to decrease risk for aspiration, as well as to implement oropharyngeal exercise program to be completed at home to maintain optimal swallow function provided diagnosis of Parkinson's disease. OFFSHORING MANAGER educated the patient that his swallow function is at risk to decline with disease progression. He verbalized understanding. Will recommend lingual coordination exercises, Terra, effortful swallow, and CTAR. Education Completed: 1. Described result of evaluation., 2. Pt understands evaluation & agrees with goals and treatment plan. and 7. Pt requires further education on strategies & risks. (Patient drank with a quick rate of intake despite OFFSHORING MANAGER cues to take a single sip during the study.) Status Active ST Patient: Active Contact Information [facility]:: Nargis Ferrer M.A. [facility]-OFFSHORING MANAGER Speech-Language Pathologist [facility] [address] [place] [address] [email or web address] [phone]
== END | disposition home or self-care (01) ==
PROVIDERS: PCP Family Medicine; Referring Provider Family Medicine; Visit Provider Family Medicine
DX: G20 Parkinson's disease (principal); R13.10 Dysphagia, unspecified; R49.0 Dysphonia
CPT/HCPCS: 74230; 92611

== ENCOUNTER 2023-08-12 16:00 | Outpatient (RCR) | payer MEDICARE, SELFPAY ==
--- NOTE | 2023-04-09 16:16 | HP.SP.EVAL ---
History History Date of Eval: 04/09/23 Attending Doctor: Referring Doctor: Reason for Referral: PARKINSONS/RX HERE Medical Diagnosis (from RX): Parkinson's disease Date of Onset of Diagnosis: October 2019 Previous speech therapy: No Other Relevant Medical History/Diagnoses/Surgery: SALVADOR FREIRE is an 78 year old male who presents to [facility] for concerns with speech clarity regression d/t Parkinson's disease dx. He attended session alone and served as historian. He has previously participated in physical therapy at this facility. He self-reports changes in his memory via forgetting names of actors and writers that he enjoys - he does not have difficulty with names of every day people and friends. He reports having no difficulty with swallowing at this time. His main concern is with his speech and volume. Pt states that he is currently driving although he does have a difficult time getting in/out of the car. He manages his own medications and finances independently. Salvador reports completing ADLs mostly independently with min assist from his during bathing to wash his back as well as getting dressed. 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 He exercises at this facility 5x/week as well as participates in the Parkinson's group on Wednesday here and in a Parkinson's class at [facility] on Mondays and . He enjoys completing crossword puzzles, watching TV, sleeping, and reading sometimes but after about 15 min. his vision becomes blurry. Salvador also reports participating in [employer] / [employer] 1x/week via Zoom however this is becoming more challenging d/t the unsteady pitch he has with sustained phonation. Salvador is also [employer] [place] and wears a right hearing aid. Salvador reports his is of normal hearing with no hearing aids. His last visit to the [facility] was yesterday, 04/08/23. Medications related to this diagnosis: Levodopa and Carbidopa (Pt reports not noticing any positives/negatives from the medications at this time Smoking Status: Never smoker Hx Smoking: No Hx Tobacco Use: No Pain Is pain an issue with your current prescribed condition?: No Personal Preferred language: Spanish Patient Allergies Allergies Allergies: Allergies celecoxib [From Celebrex] Allergy (Verified 06/30/19 15:42) Unknown ciprofloxacin [From Cipro] Allergy (Verified 06/30/19 15:42) Unknown codeine Allergy (Verified 06/30/19 15:42) Unknown doxycycline Allergy (Verified 06/30/19 15:42) Unknown erythromycin base Allergy (Verified 12/16/22 13:36) PT UNSURE OF REACTION indomethacin [From Indocin] Allergy (Verified 06/30/19 15:42) Unknown piroxicam [From Feldene] Allergy (Verified 06/30/19 15:42) Unknown sulfamethoxazole [From Septra] Allergy (Verified 06/30/19 15:42) Unknown trimethoprim [From Septra] Allergy (Verified 06/30/19 15:42) Unknown * Pediatric & Adult patients Subjective Dysphagia Comments Patient Report: -: Patient reporting no difficulty with swallowing at this time. Education provided that dysphagia will be likely as his disease progresses. It would be beneficial for Pt to participate in an MBSS for a baseline objective assessment of his swallowing function in order to compare future studies. Pt reports he would be willing to participate in the study but would like to check with his insurance first prior to scheduling. Adult Objective Voice Date of Diagnosis Date of diagnosis: October 2019 Previous Speech Therapy (If yes, describe): No Medications Familiar with on/off effect: No Objective data Objective Data: Objective data: Sound pressure level (SPL acoustic correlation of vocal loudness) was measured with a sound level meter at a distance of 40 cm from the patient's mouth. Average conversational loudness is 70-80 dB and sustained phonation duration is 15 to 20 seconds for a typical adult. Sustained Phonation Intensity (dB SPL): 59 dB SPL average across 3 trials Sustained Phonatin duration (seconds): 10.6 seconds average across 3 trials Is the individual stimulable to increase vocal intensity: Yes (when given mod verbal and visual models) Pitch Change Range (Hz) High: Moving from low C up to first space F# Pitch Change Range (Hz) Low: Moving from second line G down to C Vocal Intensity at Paragraph Level (dB SPL): 59 dB SPL average of 13 measurement points along the [place] Passage Vocal Intensity at Conversational Level (dB SPL): 59 dB SPL average of 22 measurement points during conversation Observational Assessment Pitch Range in octaves: 0.3 Maximum Phonation Time in seconds: 10.6 Voice Handicap Index (VHI) VHI VHI Administered: Yes VHI: Patient completed the Voice Handicap Index, which is a 30 item, self administered questionnaire that asks an individual to describe their voice and the effects of their voice on their life. Three subscales cover the areas of functional, emotional, and physical aspects of the voice disorders. Points from the questions can be combined to assign a total score, or they can be combined by subscale. Results for the VHI are as follows: Date: 04/09/23 VHI Test Functional: Total Score = 11 (0 - never, 1 - almost never, 2 - sometimes, 3 - almost always, 4 - always) My voice makes it difficult for people to hear me = 1 People have difficulty understanding me in a noisy room = 3 My family has difficulty hearing me when I call them throughout the house = 3 I speak with friends, neighbors, or relatives less often because of my voice = 2 I feel left of out conversations because of my voice = 2 Physical: Total Score = 1 (0 - never, 1 - almost never, 2 - sometimes, 3 - almost always, 4 - always) I use a great deal of effort to speak = 1 Emotional: Total Score = 4 (0 - never, 1 - almost never, 2 - sometimes, 3 - almost always, 4 - always) My voice problem upsets me = 2 I feel embarrassed when people ask me to repeat = 2 Total Severity Rating: Mild (0-30) Reference: Neuro-QoL instrument HDQLIFE - Speech Difficulties In the past 7 days. It was difficult for other people to understand me.: Sometimes Is was difficult to speak clearly?: Rarely In the past 7 days.. How often did you limit your social activites because you had difficulty speaking?: Never In the past 7 days... I had trouble speaking.: A little bit I was frustrated by my speech difficulties.: A little bit How much DIFFICULTY do you have... ...saying what you want to say?: A little difficulty Score HDQLIFE Speech Difficulties Raw Score: 12 HDQLIFE Speech Difficulties T - Score: 52 Radiation Oncology Patient Plan Plan Plan: Will recommend Salvador to participate in skilled speech therapy to target voice/resonance training to improve overall vocal intensity during sustained phonation, reading, and conversation tasks through the use of LSVT LOUD training. Will also recommend Salvador to participate in dysphagia intervention if warranted based on the Modified Barium Swallow Study which will objectively assess his swallow function. Without skilled intervention Salvador is at risk for social isolation, reduced participation in daily activities, being heard in restaurants or other noisy environments, and keeping a successful relationship with friends/family as his neurological disease progresses. Recommendations MBS: Yes Treatment Warranted: Yes Treatment Warranted: Dysphagia and Voice Progress Prognosis: Good Frequency Frequency: 2x /Week Duration: 2 Months Goals that are Established Determination:: Goals will be added/modified as deemed necessary and appropriate. Therapy will be discontinued when results of re-evaluation indicate therapy is no longer needed or lack of progress has been documented. Goal #1-5 Goal #1: Salvador will increase vocal loudness to reach a target sound pressure level of 65 dB SPL with 1 cue during sustained phonation, which will help increase vocal respiratory support for functional communication. Goal #2: Salvador will increase vocal loudness to reach a target sound pressure level of 65 dB SPL with 1 cue during reading at the word and sentence level, which will help increase vocal respiratory support for functional communication. Goal #3: Salvador will increase vocal loudness to reach a target sound pressure level of 65 dB SPL with 1 cue during conversation for functional communication. Goal #4: Salvador will participate in a MBSS to objectively assess his swallow function and determine the least restrictive diet. Education Patient has Indicated that the Following Identified Educational Needs: None The Patient has indicated that they have no educational or learning abilities that may effect their care.: Yes Patient Instruction Patient Education: Diagnosis, Treatment Plan and Goals Person Taught: Patient Teaching Method: Discussion and Demonstration Response to teaching: Return demonstration and Verbalize understanding
--- NOTE | 2023-06-30 15:14 | HP.PTEVAL_ITS ---
Patient's Visit Information Visit Information Visit Information: SALVADOR FREIRE is a 78 year old M referred to Physical Therapy by Dr. Wil Yan MD with a diagnosis of DISORDER OF RIGHT RTC. Date of Evaluation: 06/30/23 Physical Therapist: Mike Shah PT, Cert MDT, OCS Visit Plan Frequency: 2x /Week Duration: 4 Weeks Plan: PT INTERVENTIONS MANUAL THERAPY MOBS G-H JOINT 2-3 /PROM ,AROM/AAROM SHOULDER ,RTC/SCAPULAR STRENGTHENING AND POSTURAL EX'S Subjective Subjective: This 78 y/o male presents to physical therapy with right shoulder pain. Patient developed ~ 4weeks of acute shoulder pain without predisposing factors and no injury. Patient seen DR x-rays - ,showed RTC tear looked okay . Patient had RTC ~ 20 years ago. Patient pain located lateral deltoid . Aggravating factors OH activities self hygiene and housework tasks . Alleviating factors rest. Patient denies paresthesia/tingling. Patient pain affects sleeping. Patient has h/o neck pain did have PT . Patient also works out. Patient has contributing factors Parkinson's. Patient condition affects QOL and function. Patient goals decrease pain. 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 Pain Right Shoulder: Pain Intensity (Out of 10): 5 Pain Intensity Range: 10 Objective Objective: POSTURE: rounded shoulders ,thoracic kyphosis GAIT: slow davonte forward posture with cane NEURO: denies paresthesia/tingling PALPATION: tender AC AROM: shoulder flexion 90 degrees ,abduction 80 degrees ,ER 70 ,IR S1 PROM: shoulder flexion 130 degrees ,abduction 130 degrees ,ER 75 degrees MMT: ( peak force) infraspinatus 16.8 ,subscapularis 17.2,supraspinatus 15.1 ,deltoid 12.1 CAPSULAR TIGHTNESS: mod tight Special Tests R Shoulder External Rotation Lag Test - RC Tear: Negative R Shoulder Supine Impingement Test - RC Tear: Negative R Shoulder Lift Off Test - Subscapular Tear: Negative R Shoulder Drop Sign - IS Test: Negative R Shoulder Empty Can - SS: Positive R Shoulder Neer - Impingement: Positive R Shoulder Morrison Bello - Impingement: Positive Balance/Special Test Scores Quick DASH Score: 50.0000 Goals Goal 1:: Patient to be I with HEP for shoulder Goal Time Frame: 4-6 Weeks Goal 2:: Patient to improve AROM shoulder flexion /abduction 105 degrees to improve OH activities for ADLS Goal Time Frame: 4-6 Weeks Goal 3:: Patient to improve peak force RTC /deltoid by 5-10 # to improve function Goal Time Frame: 4-6 Weeks Goal 4:: Patient to improve quick dash by 5 points or > to improve QOL Goal Time Frame: 4-6 Weeks Goal 5:: Patient to demonstrate 50 % improvement with decrease pain and improved function Goal Time Frame: 4-6 Weeks Rehabilitation Potential Physical Therapy Diagnosis: This patient has shoulder pain with mod capsular tightness ,decrease ROM ,weakness with poor function impairs ADL's and housework tasks thus will benefit from skilled PT Rehabilitation Potential: Good Anticipated Interventions Patient/Client Instruction: Educate patient on: Condition and Plan of Care For the Purpose of:: To decrease pain, To increase ROM, To improve muscle performance and motor function, To improve ability to perform ADL's, To increase tolerance to activity/condition/position, To improve ability of physical actions for home/community/work/leisure, To improve health of tissue, To decrease soft tissue restriction, To increase flexibility/ROM, To prevent re-injury and To improve tolerance to ADL's Therapeutic Exercise to Include: Strength training, Postural training, Flexibilty training, Passive ROM, Active ROM and Scapular Strength/Stabilization For the Purpose of:: To decrease pain, To increase ROM, To improve muscle performance and motor function, To improve ability to perform ADL's, To increase tolerance to activity/condition/position, To improve ability of physical actions for home/community/work/leisure, To improve health of tissue, To decrease soft tissue restriction, To increase flexibility/ROM, To prevent re-injury and To improve tolerance to ADL's Manual Therapy Techniques to Include: Mobilization and Passive ROM For the Purpose of:: To decrease pain, To increase ROM, To improve nutrient delivery to tissue, To increase oxygenation perfusion, To improve health of tissue, To decrease soft tissue restriction and To increase flexibility/ROM Text: Thank you for the opportunity to evaluate your patient. For Medicare and Medicare HMO plans, please review the plan of care and approve it. It will need to be FAXED BACK to us at [phone] for Medicare purposes. For Medicare only, by signing this I certify the plan of care. Please let me know if there are questions or concerns regarding this plan of care. Physician Signature: Date:
--- NOTE | 2023-07-13 09:26 | HP.SP.DC_ITS ---
ST Discharge Summary Discharged: Discharge: Anthony Suazo is discharged from [facility] as of June 09, 2023 as he met all his goals. He attended a total of 7 visits after his evaluation on 04/09/23. Goals focused on increasing vocal loudness which was decreased due to Parkinson?s Disease. His goal of 80 dB during phonation was met as he was able to increase to 87dB. His conversational and sentence volume was at 70 dB which was his goal. Patient was provided education regarding continuing all exercises daily. He had a MBSS with the following recommendations: Diet: Regular Textures and Thin Liquids Compensatory Strategies: Small Bites, Small Sips, No Straws, Slow Rate (sips one at a time), Multiple Swallows (continue utilizing as needed to clear oral and pharyngeal residues), Alternate bites/solids and sips/liquids, Sitting upright and Remain sitting upright for 30 minutes after PO intake Therapy may be warranted again for deficits related to Parkinson?s as it is progressive in nature. Thank you for allowing me to participate in the care of this patient.
--- NOTE | 2023-08-12 16:34 | HP.PTDCSUM ---
Discharge Summary D/C summary: It has been my pleasure to treat SALVADOR FREIRE referred by Dr. Wil Yan MD, with the diagnosis of DISORDER OF RIGHT RTC for a total of 6 visit(s). Discharge Date: Please see the following information for a summary of their discharge status. Subjective Subjective: Wants to stop PT with shoulder doing Pain Right Shoulder: Pain Intensity (Out of 10): 2 Overall Improvement % Improvement: 50 Objective Objective/Function: POSTURE: rounded shoulders ,thoracic kyphosis GAIT: slow davonte forward posture with cane NEURO: denies paresthesia/tingling PALPATION: unremarkable AROM: shoulder flexion 9200 degrees ,abduction scapualar 130 degrees ,ER 80 ,L2 PROM: shoulder flexion 140 degrees ,abduction 150 degrees ,ER 85 degrees MMT: ( peak force) infraspinatus 19.6 ,subscapularis 22.3,[id number] ,deltoid 16.2 CAPSULAR TIGHTNESS: mild tight Goals Goal 1:: Patient to be I with HEP for shoulder Goal Progress: Goal Met Goal 2:: Patient to improve AROM shoulder flexion /abduction 105 degrees to improve OH activities for ADLS Goal Progress: Goal Met Goal 3:: Patient to improve peak force RTC /deltoid by 5-10 # to improve function Goal Progress: Goal Met Goal 4:: Patient to improve quick dash by 5 points or > to improve QOL Goal Progress: Goal Met Goal 5:: Patient to demonstrate 50 % improvement with decrease pain and improved function Plan Plan: D/C TO HEP D/C Information d/c sentence: If there are questions or concerns regarding this patient's physical therapy, please feel free to call me at [phone]. Thank you for the referral of this patient. Sincerely, Mike Shah, PT, Cert MDT, OCS Balance/Gait/Functional tests Balance/Special Test Scores Quick DASH Score: 31.8175 Improvement % Improvement: 50
== END 2023-08-12 19:00 | disposition home or self-care (01) ==
LOC: PT 16:00
PROVIDERS: PCP Family Medicine; Referring Provider Family Medicine; Visit Provider Family Medicine
DX: G20 Parkinson's disease (principal); G31.83 Neurocognitive disorder with Lewy bodies; F02.818 Dementia in other diseases classified elsewhere, unspecified severity, with other behavioral disturbance; R47.89 Other speech disturbances
CPT/HCPCS: 92507; 92524; 97110; 97162

== ENCOUNTER 2023-10-06 15:00 | Outpatient (RCR) | payer MEDICARE, SELFPAY ==
--- NOTE | 2023-08-19 12:52 | HP.PTEVAL_ITS ---
Patient's Visit Information Visit Information Visit Information: SALVADOR FREIRE is a 78 year old M referred to Physical Therapy by Dr. Hermann Miranda DO with a diagnosis of Unsteady Gait. Date of Evaluation: 08/19/23 Physical Therapist: Catie Fuchs MPT Visit Plan Frequency: 1x/Week Duration: 3 Months Plan: 1X/ week for 12 weeks to work on gait mechanics, turning mechanics, balance, and HEP for stretching and DF strength (HEP: Seated chair flexion, LTR, Upper trunk rotation, bridges) Subjective Subjective: Pt has been struggling with walking. He goes very slow walking now cause he is afraid of falling. He has fallen. He was walking and fell. He froze and could not move. He told Dr Hamilton that he fell and he said to go to PT. He is on PD meds. He takes 5 Dopas and 1 metadine. He did up his meds. He did not notice much difference with the increase in dose cause he shakes at night (L arm) and it keeps him up. He uses the rollator at home unless he is with someone then he uses the cane. He is freezing a lot more. He has to sleep in the recliner due to getting up to go to the bathroom. He can not go up and go down the stairs due to the balance. He says his balance is off. Turning in bad is bad. Getting out of the car he needs help with getting his legs out and then he has to get pulled out of the car. Objective Objective: Gait: Walks back to the treatment room with daughter arm wrapped around his with straight cane with short choppy steps (advancing leg does not pass stance leg), shuffled gait with no heel to toe pattern and looks down at the floor with flexed trunk. Gets some freezing when turning 180 degrees when initiating his turn and takes multiple small steps LE MMT: R hip flex 9.2 and L 8.3 R knee ext 24.3 and L 19.3 R knee flex 9.8 and L 8.3 15.5 and 13.3 Tinetti 14 Very stiff trunk with decrease motion (flex, LTR upper trunk rotation and decreased neck rotation) Balance/Special Test Scores Tinetti Balance Score: 10 Tinetti Gait Score: 4 Tinetti Balance & Gait Score: 14 Lower Extremity Functional Score: 16 Goals Goal 1:: I HEP Goal Time Frame: 8-12 Weeks Goal 2:: Be able to walk with straight cane with increase stride length, increase heel to toe gait pattern, looking more straight ahead and some increase in arm swing with CGA Goal Time Frame: 8-12 Weeks Goal 3:: Be able to turn 180 degrees 5/5 times with decrease number of steps and no freezing Goal Time Frame: 8-12 Weeks Goal 4:: Be able to increase his balance (score was 14 at eval on Tinetti) Goal Time Frame: 8-12 Weeks Rehabilitation Potential Rehabilitation Potential: Good Anticipated Interventions Patient/Client Instruction: Educate patient on: Condition and Plan of Care For the Purpose of:: To increase ROM, To improve nutrient delivery to tissue, To improve muscle performance and motor function, To improve ability to perform ADL's, To increase tolerance to activity/condition/position, To improve performance and independence with ADL's, To decrease level of supervision to perform tasks, To improve ability of physical actions for home/community/work/leisure, To improve gait and locomotor functions, To improve health of tissue, To decrease soft tissue restriction, To increase flexibility/ROM, To improve balance and To improve safety with gait Therapeutic Exercise to Include: Strength training, Endurance training, Balance training, Body mechanics, Postural training, Flexibilty training, Gait and locomotor training, Neuromotor development, Passive ROM, Active ROM and Dynamic Lumbar Stabilization For the Purpose of:: To improve muscle performance and motor function, To improve ability to perform ADL's, To increase tolerance to activity/condition/position, To improve performance and independence with ADL's, To decrease level of supervision to perform tasks, To improve ability of physical actions for home/community/work/leisure, To improve gait and locomotor functions, To improve health of tissue, To decrease soft tissue restriction, To increase flexibility/ROM, To improve endurance, To improve balance and To improve safety with gait Functional Training to Include: Gait training For the Purpose of:: To improve gait and locomotor functions and To improve safety with gait Text: Thank you for the opportunity to evaluate your patient. For Medicare and Medicare HMO plans, please review the plan of care and approve it. It will need to be FAXED BACK to us at [phone] for Medicare purposes. For Medicare only, by signing this I certify the plan of care. Please let me know if there are questions or concerns regarding this plan of care. Physician Signature: Date :
--- NOTE | 2023-10-18 09:37 | HP.PT.NRP(2) ---
Patient Information Patient Information: SALVADOR FREIRE was seen in my office for initial evaluation on . The following Plan of Care was established for this patient: Last Seen Last Seen: This patient was last seen in our office . Pertinent comments regarding their Physical therapy will appear below: At this point I will be discontinuing this patient from physical therapy. I would be happy to see this patient again in the future if found appropriate by the physician. Thank you! Catie Fuchs, MPT
== END 2023-10-06 19:00 | disposition home or self-care (01) ==
LOC: PT 15:00
PROVIDERS: PCP Family Medicine; Referring Provider Family Medicine; Visit Provider Family Medicine
DX: R26.81 Unsteadiness on feet (principal)
CPT/HCPCS: 97110; 97116; 97162; 97530

== ENCOUNTER 2023-12-18 14:43 | Emergency (ER) | payer MEDICARE, SELFPAY ==
[2023-12-18] VITALS (33 sets, daily range): BP systolic 119–143; BP diastolic 64–100; PULSE 68–94; RESP 16–25; TEMP 36.6–36.8; O2SAT 94–100; BMI 26.2
--- NOTE | 2023-12-18 14:54 | RAD_ITS ---
STUDY: X-RAY - RIGHT SHOULDER REASON FOR EXAM: Male, 78 years old. Fall TECHNIQUE: 2 view(s) of the shoulder. COMPARISON: None. FINDINGS: There is mild degenerative arthrosis of the glenohumeral articulation. There is postoperative change of the acromioclavicular joint. Normal acromion. There is postoperative change of the humeral head and glenoid with hardware. The soft tissue structures are unremarkable. There is no demonstrated fracture. Normal visualized pulmonary apex. RAD/Shoulder min 2 Views IMPRESSION: Degenerative and postoperative change. Electronically Signed: Milton Moralez MD at 15:36 EDT ,
--- NOTE | 2023-12-18 15:02 | EX.ED.DYSGE1 ---
HPI <WAGNER Bee - Last Filed: 12/18/23 17:34> History of Present Illness Chief Complaint: Fall Narrative Narrative: 78-year-old male with history of Parkinson's disease, type 2 diabetes, GERD who is currently on hospice who is a DNR CC presenting to the emerged department for mechanical fall. After the fall that was backwards which was mechanical, patient denies any LOC is not any blood thinners. Patient was having pain to the right side of his neck and shoulder. Patient does have a protuberance to the medial clavicle area, patient arrived in a c-collar, he was complaining more the right side of his neck. Patient is alert and oriented, is at bedside. [facility] <WAGNER Bee - Last Filed: 12/18/23 17:34> [facility] Medical History (Updated 12/18/23 @ 16:[address] Lio Grigsby MD) Parkinson disease, symptomatic Home Medications albuterol sulfate 90 mcg/actuation aerosol inhaler (Ventolin HFA) 1 - 2 puff inhalation Q4H PRN PRN Sob &/Or Wheezing 01/12/18 [History Last Taken Unknown] aspirin 81 mg chewable tablet 81 mg PO DAILY@0800 01/12/18 [History Last Taken Unknown] levothyroxine 100 mcg tablet (Synthroid) 100 mcg PO DAILY 01/12/18 [History Last Taken Unknown] atorvastatin 10 mg tablet 10 mg PO QHS 06/23/19 [History Last Taken Unknown] cholecalciferol (vitamin D3) 25 mcg (1,000 unit) capsule 1,000 unit PO DAILY 06/23/19 [History Last Taken Unknown] cyanocobalamin (vitamin B-12) 500 mcg tablet 1,000 mcg PO DAILY 06/23/19 [History Last Taken Unknown] glipizide 5 mg tablet 2.5 mg PO DAILY 06/23/19 [History Last Taken Unknown] loratadine 10 mg capsule 10 mg PO DAILY 06/23/19 [History Last Taken Unknown] omega-3 fatty acids-fish oil 300 mg-1,000 mg capsule 1 ea PO DAILY 06/23/19 [History Last Taken Unknown] omeprazole 40 mg capsule,delayed release 40 mg PO DAILY 06/23/19 [History Last Taken Unknown] pioglitazone 15 mg tablet 15 mg PO DAILY 06/23/19 [History Last Taken Unknown] tamsulosin 0.4 mg capsule 0.8 mg PO QHS 06/23/19 [History Last Taken Unknown] levofloxacin 750 mg tablet 750 mg PO QHS #4 tabs 06/30/19 [Rx Last Taken Unknown] Allergy/AdvReac Type Severity Reaction Status Date / Time celecoxib [From Celebrex] Allergy Unknown Verified 06/30/19 15:42 ciprofloxacin [From Cipro] Allergy Unknown Verified 06/30/19 15:42 codeine Allergy Unknown Verified 06/30/19 15:42 doxycycline Allergy Unknown Verified 06/30/19 15:42 erythromycin base Allergy PT UNSURE Verified 12/16/22 13:36 OF REACTION indomethacin [From Indocin] Allergy Unknown Verified 06/30/19 15:42 piroxicam [From Feldene] Allergy Unknown Verified 06/30/19 15:42 sulfamethoxazole Allergy Unknown Verified 06/30/19 15:42 [From Septra] trimethoprim [From Septra] Allergy Unknown Verified 06/30/19 15:42 Social History Smoking Status: Never smoker ROS <WAGNER Bee - Last Filed: 12/18/23 17:34> ROS ED ROS Narrative Constitutional: Negative for fever, chills, weight loss, weakness Eyes: Negative for vision loss, vision change, double vision ENT: Negative for any sore throat, ear pain, congestion Cardiovascular: Negative for any chest pain, tightness, palpitations Respiratory: Negative for any cough, sputum production, hemoptysis, dyspnea, dyspnea on exertion, orthopnea Gastrointestinal: Negative for any abdominal pain, nausea, vomiting, diarrhea, constipation, blood in stool, blood in vomit : Negative for any urinary frequency, dysuria, retention, blood in urine Muscle skeletal: Negative for any neck pain, back pain positive right shoulder pain, right clavicle pain Neurological: Negative for any headache, syncope, dizziness Skin: Negative for any rashes, itching, abrasions, lacerations Psychiatric: Negative for any depression, anxiety, stress, suicidal ideation, homicidal ideation Hematologic: Negative for any excessive bruising, easy bleeding EXAM <WAGNER Bee - Last Filed: 12/18/23 17:34> Physical Exam Narrative Exam Narrative: Vital signs reviewed. HEET: Head normocephalic atraumatic, TMs clear bilaterally. Posterior pharynx is clear, moist mucous membranes. Nares clear bilaterally. Pupils are equal round reactive to light. Negative for hematoma, negative for any abrasions. Neck: Supple with no lymphadenopathy or tenderness. No signs of meningismus. Cardiac: Regular rate and rhythm no murmurs gallops or rubs, equal peripheral pulses bilaterally. Respiratory: Lungs clear to auscultation bilaterally. No chest tenderness. Abdomen: Soft, nontender, nondistended. No abdominal bruit or pulsatile masses. No hepatosplenomegaly Extremities: No peripheral edema, no signs of gross trauma or deformity. Active full range of motion of all extremities. Patient does have a protuberance to the medial clavicular area. It appears to be a possible anterior dislocation of the medial clavicle. Neuro: Cranial nerves II through XII intact, no focal neurological deficits. Skin: Clean dry and intact with no rash, purpura, petechiae, vesicles or pustules. Backs/flank: No CVA tenderness, no midline spinal tenderness, no deformity. Psych: Normal mood and affect. No SI, HI or acute psychosis. Const Vital Signs: 12/18/23 14:45 12/18/23 14:55 12/18/23 15:48 Temperature 98 F 97.9 F Temperature Source Temporal Pulse Rate 80 93 Pulse Rate [1 (Initial Baseline)] Pulse Rate [2] Pulse Rate [3] Respiratory Rate 18 18 Respiratory Rate [1 (Initial Baseline)] Respiratory Rate [2] Respiratory Rate [3] Respiratory Effort Normal Blood Pressure 140/100 H Blood Pressure [1 (Initial Baseline)] Blood Pressure [2] Blood Pressure [3] Blood Pressure Mean 113 Pulse Ox 99 99 Oxygen Delivery Method Room Air Room Air Nasal Cannula Oxygen Delivery Method [1 (Initial Baseline)] Oxygen Delivery Method [2] Oxygen Delivery Method [3] Oxygen Flow Rate (L/min) Oxygen Flow Rate (L/min) [1 (Initial Baseline)] Oxygen Flow Rate (L/min) [2] Oxygen Flow Rate (L/min) [3] 12/18/23 16:22 12/18/23 16:28 12/18/23 15:44 Temperature Temperature Source Pulse Rate Pulse Rate [1 (Initial Baseline)] 90 Pulse Rate [2] 90 Pulse Rate [3] 86 Respiratory Rate Respiratory Rate [1 (Initial Baseline)] 24 H Respiratory Rate [2] 22 H Respiratory Rate [3] 22 H Respiratory Effort Blood Pressure Blood Pressure [1 (Initial Baseline)] 130/77 H Blood Pressure [2] 130/77 H Blood Pressure [3] 119/85 H Blood Pressure Mean Pulse Ox Oxygen Delivery Method Nasal Cannula Room Air Oxygen Delivery Method [1 (Initial Baseline)] Nasal Cannula Oxygen Delivery Method [2] Nasal Cannula Oxygen Delivery Method [3] Nasal Cannula Oxygen Flow Rate (L/min) 4 Oxygen Flow Rate (L/min) [1 (Initial Baseline)] 4 Oxygen Flow Rate (L/min) [2] 4 Oxygen Flow Rate (L/min) [3] 4 12/18/23 16:44 12/18/23 18:01 12/18/23 15:51 Temperature 98.2 F Temperature Source Pulse Rate 90 81 75 Pulse Rate [1 (Initial Baseline)] Pulse Rate [2] Pulse Rate [3] Respiratory Rate 20 H 21 H 19 H Respiratory Rate [1 (Initial Baseline)] Respiratory Rate [2] Respiratory Rate [3] Respiratory Effort Blood Pressure 129/80 H 139/75 H Blood Pressure [1 (Initial Baseline)] Blood Pressure [2] Blood Pressure [3] Blood Pressure Mean 96 96 Pulse Ox 98 96 97 Oxygen Delivery Method Room Air Oxygen Delivery Method [1 (Initial Baseline)] Oxygen Delivery Method [2] Oxygen Delivery Method [3] Oxygen Flow Rate (L/min) Oxygen Flow Rate (L/min) [1 (Initial Baseline)] Oxygen Flow Rate (L/min) [2] Oxygen Flow Rate (L/min) [3] 12/18/23 16:00 12/18/23 16:15 12/18/23 16:21 Temperature Temperature Source Pulse Rate 77 77 Pulse Rate [1 (Initial Baseline)] Pulse Rate [2] Pulse Rate [3] Respiratory Rate 18 19 H Respiratory Rate [1 (Initial Baseline)] Respiratory Rate [2] Respiratory Rate [3] Respiratory Effort Blood Pressure 130/77 H Blood Pressure [1 (Initial Baseline)] Blood Pressure [2] Blood Pressure [3] Blood Pressure Mean 91 Pulse Ox 97 97 Oxygen Delivery Method Oxygen Delivery Method [1 (Initial Baseline)] Oxygen Delivery Method [2] Oxygen Delivery Method [3] Oxygen Flow Rate (L/min) Oxygen Flow Rate (L/min) [1 (Initial Baseline)] Oxygen Flow Rate (L/min) [2] Oxygen Flow Rate (L/min) [3] 12/18/23 16:25 12/18/23 16:30 12/18/23 16:35 Temperature Temperature Source Pulse Rate 94 79 79 Pulse Rate [1 (Initial Baseline)] Pulse Rate [2] Pulse Rate [3] Respiratory Rate 23 H 18 17 Respiratory Rate [1 (Initial Baseline)] Respiratory Rate [2] Respiratory Rate [3] Respiratory Effort Blood Pressure 119/85 H 143/96 H 137/82 H Blood Pressure [1 (Initial Baseline)] Blood Pressure [2] Blood Pressure [3] Blood Pressure Mean 96 111 99 Pulse Ox 99 96 Oxygen Delivery Method Oxygen Delivery Method [1 (Initial Baseline)] Oxygen Delivery Method [2] Oxygen Delivery Method [3] Oxygen Flow Rate (L/min) Oxygen Flow Rate (L/min) [1 (Initial Baseline)] Oxygen Flow Rate (L/min) [2] Oxygen Flow Rate (L/min) [3] 12/18/23 16:40 12/18/23 16:45 12/18/23 16:50 Temperature Temperature Source Pulse Rate 79 78 75 Pulse Rate [1 (Initial Baseline)] Pulse Rate [2] Pulse Rate [3] Respiratory Rate 21 H 20 H 19 H Respiratory Rate [1 (Initial Baseline)] Respiratory Rate [2] Respiratory Rate [3] Respiratory Effort Blood Pressure 129/80 H 134/71 H 128/69 H Blood Pressure [1 (Initial Baseline)] Blood Pressure [2] Blood Pressure [3] Blood Pressure Mean 95 89 87 Pulse Ox 96 97 96 Oxygen Delivery Method Oxygen Delivery Method [1 (Initial Baseline)] Oxygen Delivery Method [2] Oxygen Delivery Method [3] Oxygen Flow Rate (L/min) Oxygen Flow Rate (L/min) [1 (Initial Baseline)] Oxygen Flow Rate (L/min) [2] Oxygen Flow Rate (L/min) [3] 12/18/23 16:55 12/18/23 17:00 12/18/23 17:05 Temperature Temperature Source Pulse Rate 74 70 Pulse Rate [1 (Initial Baseline)] Pulse Rate [2] Pulse Rate [3] Respiratory Rate 17 16 Respiratory Rate [1 (Initial Baseline)] Respiratory Rate [2] Respiratory Rate [3] Respiratory Effort Blood Pressure 124/69 H 121/69 H 125/64 H Blood Pressure [1 (Initial Baseline)] Blood Pressure [2] Blood Pressure [3] Blood Pressure Mean 87 85 83 Pulse Ox 95 95 Oxygen Delivery Method Oxygen Delivery Method [1 (Initial Baseline)] Oxygen Delivery Method [2] Oxygen Delivery Method [3] Oxygen Flow Rate (L/min) Oxygen Flow Rate (L/min) [1 (Initial Baseline)] Oxygen Flow Rate (L/min) [2] Oxygen Flow Rate (L/min) [3] 12/18/23 17:10 12/18/23 17:15 12/18/23 17:16 Temperature Temperature Source Pulse Rate 75 76 Pulse Rate [1 (Initial Baseline)] Pulse Rate [2] Pulse Rate [3] Respiratory Rate 17 18 Respiratory Rate [1 (Initial Baseline)] Respiratory Rate [2] Respiratory Rate [3] Respiratory Effort Blood Pressure 123/71 H 130/79 H Blood Pressure [1 (Initial Baseline)] Blood Pressure [2] Blood Pressure [3] Blood Pressure Mean 87 93 Pulse Ox 96 95 Oxygen Delivery Method Oxygen Delivery Method [1 (Initial Baseline)] Oxygen Delivery Method [2] Oxygen Delivery Method [3] Oxygen Flow Rate (L/min) Oxygen Flow Rate (L/min) [1 (Initial Baseline)] Oxygen Flow Rate (L/min) [2] Oxygen Flow Rate (L/min) [3] 12/18/23 17:20 12/18/23 17:25 12/18/23 17:30 Temperature Temperature Source Pulse Rate 71 68 73 Pulse Rate [1 (Initial Baseline)] Pulse Rate [2] Pulse Rate [3] Respiratory Rate 17 16 21 H Respiratory Rate [1 (Initial Baseline)] Respiratory Rate [2] Respiratory Rate [3] Respiratory Effort Blood Pressure 124/68 H 125/78 H 126/74 H Blood Pressure [1 (Initial Baseline)] Blood Pressure [2] Blood Pressure [3] Blood Pressure Mean 85 93 89 Pulse Ox 95 95 95 Oxygen Delivery Method Oxygen Delivery Method [1 (Initial Baseline)] Oxygen Delivery Method [2] Oxygen Delivery Method [3] Oxygen Flow Rate (L/min) Oxygen Flow Rate (L/min) [1 (Initial Baseline)] Oxygen Flow Rate (L/min) [2] Oxygen Flow Rate (L/min) [3] 12/18/23 17:35 12/18/23 17:40 12/18/23 17:45 Temperature Temperature Source Pulse Rate 69 79 Pulse Rate [1 (Initial Baseline)] Pulse Rate [2] Pulse Rate [3] Respiratory Rate 18 25 H Respiratory Rate [1 (Initial Baseline)] Respiratory Rate [2] Respiratory Rate [3] Respiratory Effort Blood Pressure 125/72 H 141/74 H 123/84 H Blood Pressure [1 (Initial Baseline)] Blood Pressure [2] Blood Pressure [3] Blood Pressure Mean 87 94 97 Pulse Ox 96 96 Oxygen Delivery Method Oxygen Delivery Method [1 (Initial Baseline)] Oxygen Delivery Method [2] Oxygen Delivery Method [3] Oxygen Flow Rate (L/min) Oxygen Flow Rate (L/min) [1 (Initial Baseline)] Oxygen Flow Rate (L/min) [2] Oxygen Flow Rate (L/min) [3] 12/18/23 17:50 12/18/23 17:55 12/18/23 18:00 Temperature Temperature Source Pulse Rate 80 72 84 Pulse Rate [1 (Initial Baseline)] Pulse Rate [2] Pulse Rate [3] Respiratory Rate 23 H 17 Respiratory Rate [1 (Initial Baseline)] Respiratory Rate [2] Respiratory Rate [3] Respiratory Effort Blood Pressure 133/100 H 128/73 H Blood Pressure [1 (Initial Baseline)] Blood Pressure [2] Blood Pressure [3] Blood Pressure Mean 109 89 Pulse Ox 96 94 97 Oxygen Delivery Method Room Air Room Air Oxygen Delivery Method [1 (Initial Baseline)] Oxygen Delivery Method [2] Oxygen Delivery Method [3] Oxygen Flow Rate (L/min) Oxygen Flow Rate (L/min) [1 (Initial Baseline)] Oxygen Flow Rate (L/min) [2] Oxygen Flow Rate (L/min) [3] Positive well nourished and well developed General Appearance ED: well developed <Dr. Lio Grigsby MD - Last Filed: 12/18/23 18:03> Physical Exam Const Vital Signs: 12/18/23 14:45 12/18/23 14:55 12/18/23 15:48 Temperature 98 F 97.9 F Temperature Source Temporal Pulse Rate 80 93 Pulse Rate [1 (Initial Baseline)] Pulse Rate [2] Pulse Rate [3] Respiratory Rate 18 18 Respiratory Rate [1 (Initial Baseline)] Respiratory Rate [2] Respiratory Rate [3] Respiratory Effort Normal Blood Pressure 140/100 H Blood Pressure [1 (Initial Baseline)] Blood Pressure [2] Blood Pressure [3] Blood Pressure Mean 113 Pulse Ox 99 99 Oxygen Delivery Method Room Air Room Air Nasal Cannula Oxygen Delivery Method [1 (Initial Baseline)] Oxygen Delivery Method [2] Oxygen Delivery Method [3] Oxygen Flow Rate (L/min) Oxygen Flow Rate (L/min) [1 (Initial Baseline)] Oxygen Flow Rate (L/min) [2] Oxygen Flow Rate (L/min) [3] 12/18/23 16:22 12/18/23 16:28 12/18/23 15:44 Temperature Temperature Source Pulse Rate Pulse Rate [1 (Initial Baseline)] 90 Pulse Rate [2] 90 Pulse Rate [3] 86 Respiratory Rate Respiratory Rate [1 (Initial Baseline)] 24 H Respiratory Rate [2] 22 H Respiratory Rate [3] 22 H Respiratory Effort Blood Pressure Blood Pressure [1 (Initial Baseline)] 130/77 H Blood Pressure [2] 130/77 H Blood Pressure [3] 119/85 H Blood Pressure Mean Pulse Ox Oxygen Delivery Method Nasal Cannula Room Air Oxygen Delivery Method [1 (Initial Baseline)] Nasal Cannula Oxygen Delivery Method [2] Nasal Cannula Oxygen Delivery Method [3] Nasal Cannula Oxygen Flow Rate (L/min) 4 Oxygen Flow Rate (L/min) [1 (Initial Baseline)] 4 Oxygen Flow Rate (L/min) [2] 4 Oxygen Flow Rate (L/min) [3] 4 12/18/23 16:44 12/18/23 18:01 12/18/23 15:51 Temperature 98.2 F Temperature Source Pulse Rate 90 81 75 Pulse Rate [1 (Initial Baseline)] Pulse Rate [2] Pulse Rate [3] Respiratory Rate 20 H 21 H 19 H Respiratory Rate [1 (Initial Baseline)] Respiratory Rate [2] Respiratory Rate [3] Respiratory Effort Blood Pressure 129/80 H 139/75 H Blood Pressure [1 (Initial Baseline)] Blood Pressure [2] Blood Pressure [3] Blood Pressure Mean 96 96 Pulse Ox 98 96 97 Oxygen Delivery Method Room Air Oxygen Delivery Method [1 (Initial Baseline)] Oxygen Delivery Method [2] Oxygen Delivery Method [3] Oxygen Flow Rate (L/min) Oxygen Flow Rate (L/min) [1 (Initial Baseline)] Oxygen Flow Rate (L/min) [2] Oxygen Flow Rate (L/min) [3] 12/18/23 16:00 12/18/23 16:15 12/18/23 16:21 Temperature Temperature Source Pulse Rate 77 77 Pulse Rate [1 (Initial Baseline)] Pulse Rate [2] Pulse Rate [3] Respiratory Rate 18 19 H Respiratory Rate [1 (Initial Baseline)] Respiratory Rate [2] Respiratory Rate [3] Respiratory Effort Blood Pressure 130/77 H Blood Pressure [1 (Initial Baseline)] Blood Pressure [2] Blood Pressure [3] Blood Pressure Mean 91 Pulse Ox 97 97 Oxygen Delivery Method Oxygen Delivery Method [1 (Initial Baseline)] Oxygen Delivery Method [2] Oxygen Delivery Method [3] Oxygen Flow Rate (L/min) Oxygen Flow Rate (L/min) [1 (Initial Baseline)] Oxygen Flow Rate (L/min) [2] Oxygen Flow Rate (L/min) [3] 12/18/23 16:25 12/18/23 16:30 12/18/23 16:35 Temperature Temperature Source Pulse Rate 94 79 79 Pulse Rate [1 (Initial Baseline)] Pulse Rate [2] Pulse Rate [3] Respiratory Rate 23 H 18 17 Respiratory Rate [1 (Initial Baseline)] Respiratory Rate [2] Respiratory Rate [3] Respiratory Effort Blood Pressure 119/85 H 143/96 H 137/82 H Blood Pressure [1 (Initial Baseline)] Blood Pressure [2] Blood Pressure [3] Blood Pressure Mean 96 111 99 Pulse Ox 99 96 Oxygen Delivery Method Oxygen Delivery Method [1 (Initial Baseline)] Oxygen Delivery Method [2] Oxygen Delivery Method [3] Oxygen Flow Rate (L/min) Oxygen Flow Rate (L/min) [1 (Initial Baseline)] Oxygen Flow Rate (L/min) [2] Oxygen Flow Rate (L/min) [3] 12/18/23 16:40 12/18/23 16:45 12/18/23 16:50 Temperature Temperature Source Pulse Rate 79 78 75 Pulse Rate [1 (Initial Baseline)] Pulse Rate [2] Pulse Rate [3] Respiratory Rate 21 H 20 H 19 H Respiratory Rate [1 (Initial Baseline)] Respiratory Rate [2] Respiratory Rate [3] Respiratory Effort Blood Pressure 129/80 H 134/71 H 128/69 H Blood Pressure [1 (Initial Baseline)] Blood Pressure [2] Blood Pressure [3] Blood Pressure Mean 95 89 87 Pulse Ox 96 97 96 Oxygen Delivery Method Oxygen Delivery Method [1 (Initial Baseline)] Oxygen Delivery Method [2] Oxygen Delivery Method [3] Oxygen Flow Rate (L/min) Oxygen Flow Rate (L/min) [1 (Initial Baseline)] Oxygen Flow Rate (L/min) [2] Oxygen Flow Rate (L/min) [3] 12/18/23 16:55 12/18/23 17:00 12/18/23 17:05 Temperature Temperature Source Pulse Rate 74 70 Pulse Rate [1 (Initial Baseline)] Pulse Rate [2] Pulse Rate [3] Respiratory Rate 17 16 Respiratory Rate [1 (Initial Baseline)] Respiratory Rate [2] Respiratory Rate [3] Respiratory Effort Blood Pressure 124/69 H 121/69 H 125/64 H Blood Pressure [1 (Initial Baseline)] Blood Pressure [2] Blood Pressure [3] Blood Pressure Mean 87 85 83 Pulse Ox 95 95 Oxygen Delivery Method Oxygen Delivery Method [1 (Initial Baseline)] Oxygen Delivery Method [2] Oxygen Delivery Method [3] Oxygen Flow Rate (L/min) Oxygen Flow Rate (L/min) [1 (Initial Baseline)] Oxygen Flow Rate (L/min) [2] Oxygen Flow Rate (L/min) [3] 12/18/23 17:10 12/18/23 17:15 12/18/23 17:16 Temperature Temperature Source Pulse Rate 75 76 Pulse Rate [1 (Initial Baseline)] Pulse Rate [2] Pulse Rate [3] Respiratory Rate 17 18 Respiratory Rate [1 (Initial Baseline)] Respiratory Rate [2] Respiratory Rate [3] Respiratory Effort Blood Pressure 123/71 H 130/79 H Blood Pressure [1 (Initial Baseline)] Blood Pressure [2] Blood Pressure [3] Blood Pressure Mean 87 93 Pulse Ox 96 95 Oxygen Delivery Method Oxygen Delivery Method [1 (Initial Baseline)] Oxygen Delivery Method [2] Oxygen Delivery Method [3] Oxygen Flow Rate (L/min) Oxygen Flow Rate (L/min) [1 (Initial Baseline)] Oxygen Flow Rate (L/min) [2] Oxygen Flow Rate (L/min) [3] 12/18/23 17:20 12/18/23 17:25 12/18/23 17:30 Temperature Temperature Source Pulse Rate 71 68 73 Pulse Rate [1 (Initial Baseline)] Pulse Rate [2] Pulse Rate [3] Respiratory Rate 17 16 21 H Respiratory Rate [1 (Initial Baseline)] Respiratory Rate [2] Respiratory Rate [3] Respiratory Effort Blood Pressure 124/68 H 125/78 H 126/74 H Blood Pressure [1 (Initial Baseline)] Blood Pressure [2] Blood Pressure [3] Blood Pressure Mean 85 93 89 Pulse Ox 95 95 95 Oxygen Delivery Method Oxygen Delivery Method [1 (Initial Baseline)] Oxygen Delivery Method [2] Oxygen Delivery Method [3] Oxygen Flow Rate (L/min) Oxygen Flow Rate (L/min) [1 (Initial Baseline)] Oxygen Flow Rate (L/min) [2] Oxygen Flow Rate (L/min) [3] 12/18/23 17:35 12/18/23 17:40 12/18/23 17:45 Temperature Temperature Source Pulse Rate 69 79 Pulse Rate [1 (Initial Baseline)] Pulse Rate [2] Pulse Rate [3] Respiratory Rate 18 25 H Respiratory Rate [1 (Initial Baseline)] Respiratory Rate [2] Respiratory Rate [3] Respiratory Effort Blood Pressure 125/72 H 141/74 H 123/84 H Blood Pressure [1 (Initial Baseline)] Blood Pressure [2] Blood Pressure [3] Blood Pressure Mean 87 94 97 Pulse Ox 96 96 Oxygen Delivery Method Oxygen Delivery Method [1 (Initial Baseline)] Oxygen Delivery Method [2] Oxygen Delivery Method [3] Oxygen Flow Rate (L/min) Oxygen Flow Rate (L/min) [1 (Initial Baseline)] Oxygen Flow Rate (L/min) [2] Oxygen Flow Rate (L/min) [3] 12/18/23 17:50 12/18/23 17:55 12/18/23 18:00 Temperature Temperature Source Pulse Rate 80 72 84 Pulse Rate [1 (Initial Baseline)] Pulse Rate [2] Pulse Rate [3] Respiratory Rate 23 H 17 Respiratory Rate [1 (Initial Baseline)] Respiratory Rate [2] Respiratory Rate [3] Respiratory Effort Blood Pressure 133/100 H 128/73 H Blood Pressure [1 (Initial Baseline)] Blood Pressure [2] Blood Pressure [3] Blood Pressure Mean 109 89 Pulse Ox 96 94 97 Oxygen Delivery Method Room Air Room Air Oxygen Delivery Method [1 (Initial Baseline)] Oxygen Delivery Method [2] Oxygen Delivery Method [3] Oxygen Flow Rate (L/min) Oxygen Flow Rate (L/min) [1 (Initial Baseline)] Oxygen Flow Rate (L/min) [2] Oxygen Flow Rate (L/min) [3] MDM <WAGNER Bee - Last Filed: 12/18/23 17:34> MDM Radiography Diagnostic Testing: Clinical Impression(s) from Imaging Studies Shoulder X-Ray 12/18/23 14:54 IMPRESSION: Degenerative and postoperative change. Electronically Signed: Milton Moralez MD at 15:36 EDT , Clavicle X-Ray 12/18/23 15:10 IMPRESSION: Postoperative change. No fracture seen. Electronically Signed: Milton Moralez MD at 15:35 EDT , Treatment and Re-Evaluation :: Differential diagnosis includes however is not limited to: Closed head injury, concussion, neck sprain, shoulder strain, clavicular fracture, clavicular dislocation Patient appears to be in mild distress secondary to pain to the right shoulder, right clavicular area. Patient vital signs are stable looks nontoxic. Patient will receive x-rays of the right shoulder, right clavicle. IV will be established, pain medicine administered. All radiologic examinations were read, reviewed by the emergency department attending. From these reads, a plan of care will be put in place. Patient will be reevaluated Patient's x-ray was unremarkable however a displaced clavicle not show. Only certain views. We were able to do a consultation, ER attending was able to reduce the clavicle. Patient was then placed in a sling and swath. Patient was given IV pain medicine afterward. The sedation process was successful, patient will follow-up with orthopedics. All questions are answered. Patient returned back to the facility. Patient to continue his daily pain medicine regimen. Orthopedics will be referred. All questions and stable discharge. <Dr. Lio Grigsby MD - Last Filed: 12/18/23 18:03> [facility] Narrative Medical decision making narrative: I have personally performed a face to face assessment of the patient and have reviewed the IGNACIO Note. I performed a substantive portion of the visit including all aspects of the following. My de guzman findings include: History is remarkable patient being hospice patient. He was sent in by hospice because of pain and abdomen normal-appearing chest. Patient had a fall. He apparently landed on his right shoulder. He had anterior to posterior force that resulted in an anterior sternoclavicular dislocation of the right joint. Head is atraumatic, cephalic. Ears normal. No clinical signs of basilar skull fracture. Trachea midline. No cervical spine tenderness. Patient has significant kyphosis. Exam is exam is consistent with an anterior sternoclavicular dislocation. Lung sounds are noted bilaterally and symmetric. Heart is regular. Rate is normal. There is no murmur, gallop or rub. Axillary, median, radial and ulnar function intact. Medical Decision Making x-ray of the shoulder and clavicle obtained. There is widening of the AC joint. Patient had prior surgery. He also has tenderness over the area. Other additions or changes: 1. Sedation using propofol, deep 2. Reduction of right anterior sternoclavicular dislocation Radiography Diagnostic Testing: Clinical Impression(s) from Imaging Studies Shoulder X-Ray 12/18/23 14:54 IMPRESSION: Degenerative and postoperative change. Electronically Signed: Milton Moralez MD at 15:36 EDT , Clavicle X-Ray 12/18/23 15:10 IMPRESSION: Postoperative change. No fracture seen. Electronically Signed: Milton Moralez MD at 15:35 EDT , Procedures <Dr. Lio Grigsby MD - Last Filed: 12/18/23 18:03> Procedural Sedation 1 (Initial Baseline): Consent Signed: Yes Any Problems With Anesthesia: No You/Your family experience fever (hyperthermia) w/anesthesia: No Sedation medication: Propofol Dose: 40 Route: IV Total Moderate Sedation Units: 6 Maliampati Score: Class I ASA Classification: III Comment:: Procedure commenced at 1620 and was completed by 1626. Timeout was called. Patient understood procedure and explained to me in layman's terms. Wound blanket was placed between the scapula. The right upper extremity was abducted to 90 degrees. Axial traction was applied by nurse practitioner while I pushed on the proximal portion of the clavicle. The anterior sternoclavicular dislocation was reduced without difficulty. Patient was placed in a sling and swath. He was referred to orthopedics. Discharge Plan Triage Chief Complaint: Fall ED Midlevel Provider: Levar Dhaliwal ED Provider: Lio Grigsby Dx/Rx/DC Orders Clinical Impression: Anterior dislocation of right sternoclavicular joint, Hypothyroidism, Hyperlipidemia, GERD (gastroesophageal reflux disease), Type 2 diabetes mellitus Instructions: Understanding AC Joint Sprain, Treatment for Shoulder Separation Prescriptions: No Action levothyroxine [Synthroid] 100 MCG tablet 100 mcg PO DAILY aspirin 81 MG tablet,chewable 81 mg PO DAILY@0800 albuterol sulfate [Ventolin HFA] 90 MCG HFA aerosol inhaler 1 - 2 puff inhalation Q4H PRN PRN (Reason: Sob &/Or Wheezing) Patient Comments: glipizide 5 MG tablet 2.5 mg PO DAILY atorvastatin 10 MG tablet 10 mg PO QHS cyanocobalamin (vitamin B-12) 500 MCG tablet 1,000 mcg PO DAILY cholecalciferol (vitamin D3) 1,000 UNIT capsule 1,000 unit PO DAILY pioglitazone 15 MG tablet 15 mg PO DAILY tamsulosin 0.4 MG capsule 0.8 mg PO QHS omega-3 fatty acids-fish oil 1 EACH capsule 1 ea PO DAILY omeprazole 40 MG capsule,delayed release(DR/EC) 40 mg PO DAILY loratadine 10 MG capsule 10 mg PO DAILY levofloxacin 750 MG tablet 750 mg PO QHS Qty: 4 0RF Primary Care Provider: Wil Yan Referrals: Wil Yan MD [Primary Care Provider] -
[2023-12-18] MEDS: Morphine 4 MG/ML Syringe IV ×2 (15:06→15:49)
[2023-12-18] MEDS: Ondansetron 4 MG/2 ML Vial IV (15:06)
--- NOTE | 2023-12-18 15:09 | ED.RN ---
PT WITH OBVIOUS DEFORMITY TO RT SHOULDER
--- NOTE | 2023-12-18 15:10 | RAD_ITS ---
STUDY: X-RAY - RIGHT CLAVICLE REASON FOR EXAM: Male, 78 years old. Fall TECHNIQUE: 2 view(s) of the clavicle. COMPARISON: None. FINDINGS: There is postoperative change of the distal clavicle with partial resection adjacent to the acromioclavicular articulation. Normal visualized sternoclavicular articulation. Normal visualized pulmonary apex. RAD/Clavicle IMPRESSION: Postoperative change. No fracture seen. Electronically Signed: Milton Moralez MD at 15:35 EDT ,
--- NOTE | 2023-12-18 15:51 | ED.RN ---
PLAN FOR PROCEDURAL SEDATION TO REDUCE RT SHOULDER PER DR DR BOBO
[2023-12-18] MEDS: Propofol 200 MG/20 ML Vial IV BOLUS (16:12)
[2023-12-18] MEDS: Morphine 2 MG/ML Syringe IV (16:37)
--- NOTE | 2023-12-18 16:42 | ED.RN ---
PT MEDICATED PER SHARON RAMIREZ WHILE COMPLETING PROCEDURAL SEDATION. PT FAMILY BACK IN ROOM
--- NOTE | 2023-12-18 16:52 | NURSING ---
PT CONCERNED HE WAS NOT ASLEEP DURING PROCEDURE. PT INITIALLY WOKE UP ASKING WHEN PROCEDURE WOULD START
--- NOTE | 2023-12-18 18:21 | ED.RN ---
CALLED REPORT TO [facility]ANDIE NURSE, BROOKLYNN RODRIGUEZ AT THIS TIME.
--- NOTE | 2023-12-18 19:07 | ED.RN ---
SPOKE WITH , PATIENT IS LEAVING OUR FACILITY BACK TO [place] NOW.
== END 2023-12-18 19:18 | disposition home or self-care (01) ==
PROVIDERS: Emergency Provider Emergency Medicine; PCP Family Medicine; Visit Provider Emergency Medicine
DX: S23.29XA Dislocation of other parts of thorax, initial encounter (principal); G20.A1 Parkinson's disease without dyskinesia, without mention of fluctuations; E11.9 Type 2 diabetes mellitus without complications; K21.9 Gastro-esophageal reflux disease without esophagitis; E78.5 Hyperlipidemia, unspecified; E03.9 Hypothyroidism, unspecified; W19.XXXA Unspecified fall, initial encounter
CPT/HCPCS: 73000; 73030; 96374; 96375; 96376; 99284; J2405

== ENCOUNTER 2024-12-12 04:41 | Emergency (ER) | payer MEDICARE, SELFPAY ==
[2024-12-12 04:43] VITALS: BP 136/79; PULSE 65; RESP 18; TEMP 36.4; O2SAT 95; O2SAT 96; BMI 27.6
--- NOTE | 2024-12-12 05:01 | CT_ITS ---
PROCEDURE: SPINE LUMBAR WITHOUT CONTRAST 12/12/2024 REASON FOR EXAM: PAIN TECHNIQUE: Lumbar spine CT without contrast. Coronal and Sagittal reconstruction series were provided. One or more dose reduction techniques were used (e.g., Automated exposure control, adjustment of the mA and/or kV according to patient size, use of iterative reconstruction technique COMPARISON: None. RADIATION DOSE SUMMARY: CTDlvol: 21 mGy DLP: 884 mGycm FINDINGS: There is normal lumbar lordosis.. There is an acute compression fracture involving the inferior endplate of L1 anteriorly (image 38/86) and the anterior superior endplate of L2. There is probably 10-15% compression fracture deformity involving the L2 vertebral body. A bridging osteophyte is seen anteriorly at L1-L2 which appears also involved in the fracture. Osteopenia is noted. Additional The gallbladder is surgically absent. Atheromatous calcification seen within the aorta. The prostate is enlarged and measures up to 6 cm in transverse dimension. CT/Spine Lumbar without Contrast IMPRESSION: Acute compression fracture involving the inferior endplate of L1 and superior e ndplate of L2. Correlation with MRI may be helpful although the fractures appears acute. Prostatomegaly. Osteopenia. Reading Location: [id number]
[2024-12-12] MEDS: HYDROcodone Bitartrate/Apap 5/325 Tablet PO ×2 (05:05→09:46)
[2024-12-12] MEDS: diazePAM 2 MG Tablet PO (05:05)
--- NOTE | 2024-12-12 05:27 | EX.ED.DYSGE1 ---
HPI History of Present Illness Chief Complaint: Fall Informant: patient and EMS Narrative Narrative: Patient is a 79-year-old male from home with past medical history of Parkinson's hypothyroidism and [id number] type 2 diabetes. He states around 3 in the morning he got up out of bed and was trying to go to his recliner. He states he was reaching for the handles and lost his balance and fell over. He denies striking his head any loss of consciousness or history of bleeding disorder or blood thinner use. He states he was able to get up shortly after the fall but he now has pain in the low back making it difficult to ambulate. With concern for underlying trauma he was brought in for evaluation. [facility] Medical History Parkinson disease, symptomatic Home Medications ?Medication ?Instructions ?Recorded ?Last Taken ?Type albuterol sulfate 90 mcg/actuation 1 - 2 puff inhalation Q4H PRN PRN 01/12/18 Unknown History aerosol inhaler (Ventolin HFA) Sob &/Or Wheezing aspirin 81 mg chewable tablet 81 mg PO DAILY@0800 01/12/18 Unknown History levothyroxine 100 mcg tablet 100 mcg PO DAILY 01/12/18 Unknown History (Synthroid) atorvastatin 10 mg tablet 10 mg PO QHS 06/23/19 Unknown History cholecalciferol (vitamin D3) 25 1,000 unit PO DAILY 06/23/19 Unknown History mcg (1,000 unit) capsule cyanocobalamin (vitamin B-12) 500 1,000 mcg PO DAILY 06/23/19 Unknown History mcg tablet glipizide 5 mg tablet 2.5 mg PO DAILY 06/23/19 Unknown History loratadine 10 mg capsule 10 mg PO DAILY 06/23/19 Unknown History omega-3 fatty acids-fish oil 300 1 ea PO DAILY 06/23/19 Unknown History mg-1,000 mg capsule omeprazole 40 mg capsule,delayed 40 mg PO DAILY 06/23/19 Unknown History release pioglitazone 15 mg tablet 15 mg PO DAILY 06/23/19 Unknown History tamsulosin 0.4 mg capsule 0.8 mg PO QHS 06/23/19 Unknown History levofloxacin 750 mg tablet 750 mg PO QHS #4 tabs 06/30/19 Unknown Rx Allergy/AdvReac Type Severity Reaction Status Date / Time celecoxib (From Celebrex) Allergy Unknown Verified 12/12/24 04:43 ciprofloxacin (From Cipro) Allergy Unknown Verified 12/12/24 04:43 codeine Allergy Unknown Verified 12/12/24 04:43 doxycycline Allergy Unknown Verified 12/12/24 04:43 erythromycin base Allergy PT UNSURE Verified 12/12/24 04:43 OF REACTION indomethacin (From Indocin) Allergy Unknown Verified 12/12/24 04:43 piroxicam (From Feldene) Allergy Unknown Verified 12/12/24 04:43 sulfamethoxazole (From Allergy Unknown Verified 12/12/24 04:43 Septra) trimethoprim (From Septra) Allergy Unknown Verified 12/12/24 04:43 Family History unable to obtain Social History Smoking Status: Never smoker ROS ROS ED Constitutional Constitutional ED: Denies chills or fever(s) Eyes Eyes: Denies change in vision ENT ENT ED: Denies sore throat Cardiovascular Cardiovascular: Reports other Details: Negative syncope ; Denies chest pain Respiratory/Chest Respiratory/Chest: Denies cough or dyspnea Gastrointestinal Gastrointestinal: Denies abdominal pain, diarrhea, nausea or vomiting Musculoskeletal Musculoskeletal: Reports back pain; Denies neck pain Integumentary Denies Abrasions Neurologic Neurologic: Denies headache(s) Hematologic/Lymphatic Hematologic/Lymphatic: Denies easy bleeding or easy bruising EXAM Physical Exam Const Vital Signs: 12/12/24 04:43 12/12/24 04:43 12/12/24 06:34 Temperature 97.6 F L Temperature Source Oral Pulse Rate 65 65 Respiratory Rate 18 18 Respiratory Effort Normal Respiratory Depth Normal Respiratory Pattern Normal Blood Pressure 136/79 H 138/61 H Blood Pressure Mean 98 86 Pulse Ox 96 95 95 Oxygen Delivery Method Room Air Room Air Room Air Positive well nourished and well developed General Appearance ED: well developed; Negative for pallor HEENT HEENT Narrative: Normocephalic atraumatic No signs of depressed or basilar skull fracture Eyes PERRL and EOMs intact bilaterally General Eye ED: Negative for scleral icterus Neck supple Neck Narrative: No bony deformity or step-off of the cervical spine no midline tenderness to palpation Chest Wall palpation of chest normal Chest Narrative: No bony deformity or subcutaneous emphysema noted No pain with palpation Resp normal respiratory effort and clear to auscultation bilaterally Cardio regular rate and regular rhythm GI normal to inspection, nondistended, normoactive bowel sounds, non-tender, non-distended and no masses GI Narrative: No voluntary guarding or rigidity or pulsatile mass Auscultation: normoactive bowel sounds Palpation: soft Back/Spine Back/Spine Narrative: No bony deformity or step-off of the thoracic spine no midline tenderness to palpation in this area However there is pain in the midline with palpation of the lumbar spine without obvious bony deformity or step-off Extremity normal to inspection Extremity Narrative: Pelvis is stable there is no shortening or external rotation of either lower extremity No signs of long bone injury. No joint effusion Compartments are soft and compressible going against compartment syndrome Neuro oriented x3 and CN's II-XII intact bilaterally Sensorium / Orientation: alert Psych mental status grossly normal Skin no rashes or lesions noted and no wounds Skin Narrative: No abrasions or ecchymosis noted General Skin Exam: Negative for jaundice or pallor MDM MDM MDM Narrative Medical decision making narrative: Patient arrived to the ER with stable vitals. He reported a mechanical fall and therefore there is no need for cardiac or syncope workup. He did not strike his head nor does he have any loss of consciousness or history of bleeding disorder or blood thinner use of my concern for skull fracture versus traumatic subarachnoid or subdural hemorrhage is low. He does not have signs of long bone injury or pelvic fracture and his only location of pain is in the low back concerning for compression fracture versus spondylolisthesis. Therefore CT was obtained. This showed a L1 and L2 compression fracture which does correlate with his fall and pain. The patient is in hospice care already secondary to his Parkinson's and advanced age. states he was scheduled to go to their facility on Wednesday. He states that he has difficulty getting around already and now with the fracture he will not be able to ambulate and therefore will need help with pain control and performing his activities of daily living. Therefore and they request that he be placed in their facility at this time. I do agree with this plan of care as I feel patient will need advanced help for multiple weeks secondary to pain from the compression fracture. Therefore hospice was contacted and will come out to evaluate the patient at this time. Plan will be for admission to their facility for continued pain control and care. History & Record Review Discussion w/independent historian: EMS personnel, Patient and Significant other Radiography Diagnostic Testing: Clinical Impression(s) from Imaging Studies Lumbar Spine CT 12/12/24 05:01 IMPRESSION: Acute compression fracture involving the inferior endplate of L1 and superior endplate of L2. Correlation with MRI may be helpful although the fractures appears acute. Prostatomegaly. Osteopenia. Reading Location: [id number] Discharge Plan Triage Chief Complaint: Fall ED Provider: Eb Patton Dx/Rx/DC Orders Clinical Impression: Compression fx, lumbar spine, Hypothyroidism, Parkinson's disease, Accidental fall, Intractable back pain, Type 2 diabetes mellitus Instructions: ED Fracture, Vertebral Compression Prescriptions: No Action levothyroxine [Synthroid] 100 MCG tablet 100 mcg PO DAILY aspirin 81 MG tablet,chewable 81 mg PO DAILY@0800 albuterol sulfate [Ventolin HFA] 90 MCG HFA aerosol inhaler 1 - 2 puff inhalation Q4H PRN PRN (Reason: Sob &/Or Wheezing) Patient Comments: glipizide 5 MG tablet 2.5 mg PO DAILY atorvastatin 10 MG tablet 10 mg PO QHS cyanocobalamin (vitamin B-12) 500 MCG tablet 1,000 mcg PO DAILY cholecalciferol (vitamin D3) 1,000 UNIT capsule 1,000 unit PO DAILY pioglitazone 15 MG tablet 15 mg PO DAILY tamsulosin 0.4 MG capsule 0.8 mg PO QHS omega-3 fatty acids-fish oil 1 EACH capsule 1 ea PO DAILY omeprazole 40 MG capsule,delayed release(DR/EC) 40 mg PO DAILY loratadine 10 MG capsule 10 mg PO DAILY levofloxacin 750 MG tablet 750 mg PO QHS Qty: 4 0RF Primary Care Provider: Wil Yan Referrals: Lito Bo MD [Med Staff - Active Staff] - (Lumbar compression fracture) Wil Yan MD [Primary Care Provider] - Print Language: Turkish Disposition Disposition: Hospice in Medical Facility
[2024-12-12 06:34] VITALS: BP 138/61; PULSE 65; RESP 18; O2SAT 95
[2024-12-12] MEDS: Ondansetron ODT 4 MG Tablet PO (06:41)
[2024-12-12] MEDS: Morphine 4 MG/ML Syringe IM ×2 (06:41→10:54)
--- NOTE | 2024-12-12 06:47 | PCA ---
CALLED HOSPICE AT 0640. THEY WILL SEND A NURSE OUT TO ASSESS THE PATIENT MICAELA
[2024-12-12 07:33] VITALS: BP 125/68; PULSE 70; RESP 16; O2SAT 96
[2024-12-12 10:00] VITALS: BP 128/69; PULSE 95; RESP 16; O2SAT 95
--- NOTE | 2024-12-19 18:37 | CM.ED ---
Social Work SW received handoff from other ED SW, Kyra OLIVIER, that patients family had requested information be sent to [facility] and that Kyra was waiting on clarification from [facility] on what information was needed. SW received phone call from [employer] at [facility] that they needed the ED summary and discharge paperwork from patients visit. SW faxed information to [employer] at [facility], message left for [employer] that information had been sent and to call back to ED if information was not received. Yolanda Lowe, WILL CALL ORDER CLERK, SKIVER BLOCKERS
== END 2024-12-12 11:08 | disposition hospice, inpatient (51) ==
PROVIDERS: Emergency Provider Emergency Medicine; PCP Family Medicine; Visit Provider Emergency Medicine
DX: S32.019A Unspecified fracture of first lumbar vertebra, initial encounter for closed fracture (principal); G20.A1 Parkinson's disease without dyskinesia, without mention of fluctuations; S32.029A Unspecified fracture of second lumbar vertebra, initial encounter for closed fracture; E11.9 Type 2 diabetes mellitus without complications; W01.0XXA Fall on same level from slipping, tripping and stumbling without subsequent striking against object, initial encounter; E03.9 Hypothyroidism, unspecified; Z79.82 Long term (current) use of aspirin; Z79.84 Long term (current) use of oral hypoglycemic drugs; Z79.890 Hormone replacement therapy; Z79.899 Other long term (current) drug therapy
CPT/HCPCS: 72131; 96372; 99285